=== PATIENT | female | born 1955 | race Caucasian/White ===

== ENCOUNTER → 2019-08-24 10:41 | Outpatient (BNVA) | payer MEDICARE, SELFPAY | PROVIDERS: Family Provider Nurse Practitioner Family; PCP Family Medicine; Visit Provider Family Medicine | DX: J44.9 Chronic obstructive pulmonary disease, unspecified (principal); Z13.6 Encounter for screening for cardiovascular disorders; F32.9 Major depressive disorder, single episode, unspecified | CPT/HCPCS: 80053; 80061; 85025 ==

== ENCOUNTER → 2020-11-17 08:34 | Outpatient (BNVA) | payer MEDICARE, BC, SELFPAY | PROVIDERS: Family Provider Nurse Practitioner Family; PCP Family Medicine; Visit Provider Family Medicine | DX: Z13.6 Encounter for screening for cardiovascular disorders (principal); Z12.31 Encounter for screening mammogram for malignant neoplasm of breast; J43.1 Panlobular emphysema; F32.1 Major depressive disorder, single episode, moderate; F17.219 Nicotine dependence, cigarettes, with unspecified nicotine-induced disorders | CPT/HCPCS: 80053; 80061; 85025 ==

== ENCOUNTER 2020-12-06 17:06 | Emergency (ER) | payer MEDICARE, BC, SELFPAY ==
[2020-12-06 17:14] VITALS: BP 128/69; PULSE 111; RESP 18; TEMP 36.8; O2SAT 94; BMI 23.6
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
[2020-12-06 19:32] VITALS: RESP 20
[2020-12-06] MEDS: oxyCODONE-APAP 10-325 mg Tablet 2 TAB PO (19:32)
== END 2020-12-06 21:46 | disposition home or self-care (01) ==
PROVIDERS: Emergency Provider Emergency Medicine; PCP Family Medicine
DX: S06.0X0A Concussion without loss of consciousness, initial encounter (principal); S00.03XA Contusion of scalp, initial encounter; S30.0XXA Contusion of lower back and pelvis, initial encounter; V86.39XA Unspecified occupant of other special all-terrain or other off-road motor vehicle injured in traffic accident, initial encounter
CPT/HCPCS: 70450; 72125; 72192; 99283

== ENCOUNTER 2021-04-16 12:40 | Outpatient (CLI) | payer MEDICARE, BC, SELFPAY ==
--- NOTE | 2021-04-16 12:46 | MM_ITS ---
WS: [id number] BILATERAL 3D TOMOSYNTHESIS DIGITAL DIAGNOSTIC MAMMOGRAPHY WITH CAD CLINICAL INFORMATION: HX OF BREAST CA HISTORY: COMPARISON: None. TECHNIQUE: Bilateral CC, MLO, and ML views. FINDINGS: The breasts are composed of heterogeneous fibroglandular density, which can limit the detection of sm all underlying mass lesions. Prior RIGHT breast lumpectomy with parenchymal fibrosis unchanged in olivia earance compared to previous.. Incidental punctate calcifications. No suspicious focal mass, asymmetry, calcifications, or architectural distortion. No evidence of elmer gnancy. MM/[place] [id number] IMPRESSION: BI-RADS: 2-Benign FOLLOW UP: 1 Year Follow-up Recommend return to annual diagnostic mammography.
== END 2021-04-16 12:41 | disposition home or self-care (01) ==
LOC: RADSHAW 12:41
PROVIDERS: PCP Family Medicine; Visit Provider Family Medicine
DX: Z85.3 Personal history of malignant neoplasm of breast (principal)
CPT/HCPCS: 77062

== ENCOUNTER → 2021-11-12 08:40 | Outpatient (BNVA) | payer MEDICARE, BC, SELFPAY | PROVIDERS: PCP Family Medicine; Visit Provider Family Medicine | DX: Z13.6 Encounter for screening for cardiovascular disorders (principal); J30.2 Other seasonal allergic rhinitis; Z23 Encounter for immunization; R32 Unspecified urinary incontinence | CPT/HCPCS: 80053; 80061; 81000; 85025; 87086 ==

== ENCOUNTER 2021-12-13 18:26 | Inpatient (IN) | payer MEDICARE, BC, SELFPAY ==
[2021-12-13] VITALS (9 sets, daily range): BP systolic 119–172; BP diastolic 67–104; PULSE 113–126; RESP 18–26; TEMP 36.4–36.7; O2SAT 84–94; BMI 22.4
--- NOTE | 2021-12-13 19:18 | XRR_ITS ---
PROCEDURE INFORMATION: Exam: XR Chest Exam date and time: 12/13/2021 8:28 PM Age: 66 years old Clinical indication: Shortness of breath; Prior surgery; Surgery date: 6+ months; Surgery type: Lumpectomy for breast CA; Additional info: SOB TECHNIQUE: Imaging protocol: Radiologic exam of the chest. Views: 1 view. COMPARISON: CT chest wo con [id number] 08/01/2017 9:13 AM FINDINGS: Lungs: Severe emphysema. Coarse interstitial opacities in both lung bases. Patchy airspace opacity in the lingula. Mild scarring in the right lung apex. Pleural spaces: Unremarkable. No pleural effusion. No pneumothorax. Heart/Mediastinum: Unremarkable. No cardiomegaly. Bones/joints: Mild rightward thoracolumbar curvature. No visible thoracic fracture. Mild L2 compression fracture. XR/XR chest 1V portable [id number] IMPRESSION: 1. Bibasilar pulmonary edema versus pneumonia. 2. Age indeterminate mild L2 compression fracture.
--- NOTE | 2021-12-13 19:20 | ED_ITS ---
HPI - SOB/Dyspnea General: Chief Complaint: Shortness of Breath/Dyspnea Stated Complaint: sob, cough Time Seen by Provider: 12/13/21 19:06 Source: patient History of Present Illness: HPI Narrative: 66-year-old lady with history of COPD. She is on 3 L of oxygen, mainly at night at baseline. She presents with 3 to 5 days of increasing shortness of breath, cough with sputum production, and chills. She does not know if she has had a fever. She believes she has a cold is making her COPD worse. She denies chest pain MD elicited complaint: shortness of breath Pertinent past history: COPD Onset (ago): day(s) Context: recent illness Timing: constant and progressively worsening Severity: moderate Exacerbating factors: lying flat, exertion and coughing Relieving factors: oxygen and bronchodilators Known history of: COPD Associated symptoms: Reports chest congestion, cough, diaphoresis, fever(s), nausea and orthopnea; Deny abdominal pain, chest pain, dizziness, palpitations, paresthesias or vomiting Treatment prior to arrival: oxygen and bronchodilator Review of Systems Const: Reports: fever(s) and diaphoresis Eyes: Denies: change in vision ENMT: Denies: throat pain Card: Reports: orthopnea; Denies: chest pain or palpitations Resp: Reports: chest congestion GI: Reports: nausea; Denies: abdominal pain or vomiting Neuro: Denies: dizziness PFSH ED PFSH: Medical History COPD (chronic obstructive pulmonary disease) History of breast cancer in female Diagnosed in 2000. Surgical History H/O lumpectomy right breast H/O tubal ligation History of appendectomy Family History Other CAD (coronary artery disease) Cancer Social History Smoking and tobacco status: current every day smoker cigarettes Packs smoked per day: 0.25 Alcohol intake: never Physical Exam Const: GENERAL APPEARANCE: cooperative, in distress, ill appearing and frail appearing HENMT: COMMON NORMALS: normocephalic, atraumatic and Normal external nose present HEAD & SCALP: normocephalic and atraumatic FACE & SINUS: normal facial exam and face symmetric NOSE: Normal external nose present Eye: COMMON NORMALS: Equal, round and reactive pupils present and EOMs intact bilaterally PUPIL: Yes Equal, round and reactive pupils present Neck/C-Spine: GENERAL: Yes trachea midline Chest: CHEST: Yes Symmetrical chest wall rise Resp: EFFORT & INSPECTION: Yes tachypneic, Yes respiratory distress, Yes pursed lip breathing and Yes uses accessory muscles AUSCULTATION: wheezes (minimal) and diminished lung sounds (significant) Cardio: COMMON NORMALS: regular rate, regular rhythm and Peripheral pulses 2+ throughout RATE: regular rate RHYTHM: regular rhythm PERIPHERAL PULSES: Peripheral pulses 2+ throughout GI: COMMON NORMALS: Normal to inspection, nondistended, normoactive bowel sounds present Extremity: COMMON NORMALS: no pedal edema Neuro: MARIAA COMA SCALE: document GCS findings [place] coma scale eye opening: Spontaneous [place] coma scale verbal response: Orientated Mariaa coma scale motor response: Obey commands Mariaa coma scale total score: 15 Course Vital Signs: Vital signs: Vital Signs Temperature 97.7 F 12/14/21 03:53 Pulse Rate 115 H 12/14/21 03:53 Respiratory Rate 34 H 12/14/21 03:53 Blood Pressure 174/82 12/14/21 03:53 Pulse Oximetry 91 12/14/21 03:53 Oxygen Delivery Me thod 12/14/21 03:53 Oxygen Flow Rate 4 12/14/21 03:07 MDM - SOB/Dyspnea Medical Decision Making Patient has had Solu-Medrol, magnesium, and DuoNeb treatment with minimal improvement although she believes she is doing better. Respiratory rate is still near 40. Pulse ox is 92%. She is mildly tachycardic. She will need to be admitted. Nebulizer treatments, continued steroid, etc. Antigen panel is negative. Chest x-ray shows bibasilar atelectasis versus edema versus pneumonia. Her white blood cell count is 11.8 with a mild left shift. Her sodium is 126. HospitalistIs aware, will see the patient. Lab Data : 12/13/21 19:52 12/13/21 19:52 Labs/Radiology: Radiology Impressions Chest X-Ray 12/13/21 19:18 IMPRESSION: 1. Bibasilar pulmonary edema versus pneumonia. 2. Age indeterminate mild L2 compression fracture. Laboratory Results WBC 11.8 10^3/uL (4.0-10.0) H 12/13/21 19:52 RBC 4.26 10^6/uL (4.1-5.3) 12/13/21 19:52 Hgb 13.1 g/dL (11.5-15.3) 12/13/21 19:52 Hct 41.5 % (37.0-47.0) 12/13/21 19:52 MCV 97.4 fl (81-99) 12/13/21 19:52 MCH 30.8 pg (28.0-34.0) 12/13/21 19:52 MCHC 31.6 g/dL (30.0-36.0) 12/13/21 19:52 RDW 12.0 % (12.1-15.1) L 12/13/21 19:52 Plt Count 192 10^3/cmm (130-400) 12/13/21 19:52 MPV 11.3 fL (7.4-10.4) H 12/13/21 19:52 Neut % (Auto) 87.2 % 12/13/21 19:52 Lymph % (Auto) 2.0 % 12/13/21 19:52 [place] % (Auto) 10.0 % 12/13/21 19:52 Eos % (Auto) 0.0 % 12/13/21 19:52 Baso % (Auto) 0.4 % 12/13/21 19:52 Neut # (Auto) 10.26 10^3/uL (1.8-7.7) H 12/13/21 19:52 Lymph # (Auto) 0.2 10^3/uL (0.8-4.8) L 12/13/21 19:52 [place] # (Auto) 1.2 10^3/uL (0.2-0.9) H 12/13/21 19:52 Eos # (Auto) 0.0 10^3/uL (0.0-0.8) 12/13/21 19:52 Baso # (Auto) 0.1 10^3/uL (0.0-0.1) 12/13/21 19:52 Nucleated RBC % (auto) 0 % 12/13/21 19:52 Nucleated RBCs # 0.0 /100WBC 12/13/21 19:52 Specimen Type Arterial 12/13/21 19:45 Sample Site Radial, right 12/13/21 19:45 ABG pH 7.35 (7.35-7.45) 12/13/21 19:45 ABG pCO2 53.0 mmHg (35-45) H 12/13/21 19:45 ABG pO2 58.0 mmHg (80.0-100.0) L 12/13/21 19:45 ABG HCO3 29.1 mmol/L (22-26) H 12/13/21 19:45 ABG Base Excess 2.3 mmol/L (-2.0-2.0) H 12/13/21 19:45 Heron Test Pos 12/13/21 19:45 Hematocrit 42.2 % (37-47) 12/13/21 19:45 Hgb O2 Saturation 89.1 % (95-100) L 12/13/21 19:45 Carboxyhemoglobin 1.4 %THgb (0.4-20.1) 12/13/21 19:45 Methemoglobin 0.6 % (0.4-1.5) 12/13/21 19:45 Total Hemoglobin 13.8 g/dL (12-16) 12/13/21 19:45 O2 Delivery Device Nc 12/13/21 19:45 O2 Liters/Min 4.0 % 12/13/21 19:45 Loom Operator ID [email or web address] 12/13/21 19:45 Sodium 126 mmol/L (136-145) L 12/13/21 19:52 Potassium 4.1 mmol/L (3.5-5.1) 12/13/21 19:52 Chloride 88 mmol/L (98-107) L 12/13/21 19:52 Carbon Dioxide 27 mmol/L (22-29) 12/13/21 19:52 Anion Gap 15.1 (5-19) 12/13/21 19:52 BUN 9 mg/dL (8-23) 12/13/21 19:52 Creatinine 0.4 mg/dL (0.5-0.9) L 12/13/21 19:52 GFR Calculation 159.2 mL/min (90-130) H 12/13/21 19:52 Glucose 129 mg/dL (65-115) H 12/13/21 19:52 Calculated Osmolality 262 mOsm/kg (285-295) L 12/13/21 19:52 Lactic Acid 1.2 mmol/L (0.5-2.2) 12/13/21 19:52 Calcium 9.0 mg/dL (8.5-10.5) 12/13/21 19:52 Total Bilirubin 0.4 mg/dL (0.15-1.2) 12/13/21 19:52 AST 29 U/L (0-32) 12/13/21 19:52 ALT 30 U/L (0-33) 12/13/21 19:52 Alkaline Phosphatase 123 U/L (35-105) H 12/13/21 19:52 NT-Pro-B Natriuret Pep 185 pg/mL (0-125) H 12/13/21 19:52 Total Protein 7.1 g/dL (6.6-8.7) 12/13/21 19:52 Albumin 3.7 g/dL (3.5-5.2) 12/13/21 19:52 Globulin 3.4 g/dL (1.3-4.6) 12/13/21 19:52 Influenza Type A Ag negative (Negative) 12/13/21 19:52 Influenza Type B Ag negative (Negative) 12/13/21 19:52 SARS-CoV-2 Ag (Rapid) negative (Negative) 12/13/21 19:52 Discharge Plan Discharge Patient Disposition: Admitted As Inpatient Admit Provider: Loreta Arthur Clinical Impression: Acute exacerbation of chronic obstructive airways disease, Acute respiratory failure with hypoxia and hypercapnia Condition: Stable Coding Level of Care Code ED Supreme [employer] Judge for Chg Fwd Exam Comprehensive
[2021-12-13] MEDS: magnesium sulfate premix 2 GM/50 ML PIGGYBACK IV (19:51)
[2021-12-13 19:56] LABS: ABG PH Result 7.35 (7.35-7.45); Arterial Blood Gas Hematocrit 42.2 % (37-47); Base Excess ABG 2.3 mmol/L (-2.0-2.0); Blood Gas Allen Test Pos; Blood Gas Operator Identificat WALCI; Blood Gas Sample Site Radial, right; Blood Gas Sample Type Arterial; Carboxyhemoglobin 1.4 %THgb (0.4-20.1); HCO3 ABG 29.1 mmol/L (22-26); HGB O2 Sat 89.1 % (95-100); Methemoglobin 0.6 % (0.4-1.5); Oxygen Device NC; Total Hemoglobin 13.8 g/dL (12-16)
--- NOTE | 2021-12-13 19:57 | ECG_ITS ---
[facility] Test Date: 2021-12-13 Pat Name: Teri Nixon Department: Room: Gender: Female Zipper Lining Folder: : 1955 Requested By: Austin Garza Order Number: [id number] Rodrigo MD: Ashley Olivas M.D. Measurements Intervals [place] Rate: 120 P: 93 VT: 177 QRS: 91 QRSD: 93 T: 13 QT: 304 QTc: 431 Interpretive Statements SINUS TACHYCARDIA BORDERLINE RIGHT AXIS DEVIATION [QRS AXIS > 90] No previous ECG available for comparison Electronically Signed On 12-15-2021 12:05:59 SENIOR SALES ASSOCIATE by Ashley Olivas M.D. [id number]
[2021-12-13] MEDS: ipratropium-albuterol 3 mL Neb INHALATION (19:59)
[2021-12-13 20:02] LABS: Basophils # 0.1 10^3/uL (0.0-0.1); Basophils % 0.4 %; Hematocrit 41.5 % (37.0-47.0); Hemoglobin 13.1 g/dL (11.5-15.3); Lymphocytes # 0.2 10^3/uL (0.8-4.8); Mean Corpuscular HGB Conc 31.6 g/dL (30.0-36.0); Mean Corpuscular Hemoglobin 30.8 pg (28.0-34.0); Mean Corpuscular Volume 97.4 fl (81-99); Mean Platelet Volume 11.3 fL (7.4-10.4); Monocytes # 1.2 10^3/uL (0.2-0.9); Neutrophils # 10.26 10^3/uL (1.8-7.7); Neutrophils % 87.2 %; Nucleated Red Blood Cells % 0 %; Platelet Count 192 10^3/cmm (130-400); Red Blood Count 4.26 10^6/uL (4.1-5.3); White Blood Count 11.8 10^3/uL (4.0-10.0)
[2021-12-13 20:17] LABS: Lactic Sepsis W/Reflex 1.2 mmol/L (0.5-2.2)
[2021-12-13 20:28] LABS: Alanine Aminotransferase 30 U/L (0-33); Albumin Level 3.7 g/dL (3.5-5.2); Alkaline Phosphatase 123 U/L (35-105); Anion Gap 15.1 (5-19); Aspartate Amino Transferase 29 U/L (0-32); Blood Urea Nitrogen 9 mg/dL (8-23); Carbon Dioxide 27 mmol/L (22-29); Chloride 88 mmol/L (98-107); Globulin 3.4 g/dL (1.3-4.6); Glomerular Filtration Rate 159.2 mL/min (90-130); Glucose 129 mg/dL (65-115); NT Pro B Type Natriuretic Pept 185 pg/mL (0-125); Osmolality Calculated 262 mOsm/kg (285-295); Potassium 4.1 mmol/L (3.5-5.1); Sodium 126 mmol/L (136-145); Total Bilirubin 0.4 mg/dL (0.15-1.2); Total Protein 7.1 g/dL (6.6-8.7)
[2021-12-13 20:34] LABS: Influenza A by IFA negative (Negative); Influenza B by IFA negative (Negative)
[2021-12-13 20:41] LABS: SARS Covid-2 Antigen negative (Negative)
[2021-12-13 20:47] LABS: Creatinine Clr Calc Pharmacy 63.2285
[2021-12-13] MEDS: albuterol 2.5 mg/3 mL Neb INHALATION (21:05)
--- NOTE | 2021-12-13 21:16 | PC.NURSE ---
Report given to Henri Stover
[2021-12-14] VITALS (17 sets, daily range): BP systolic 121–174; BP diastolic 64–82; PULSE 80–115; RESP 15–34; TEMP 36.3–37; O2SAT 91–98
--- NOTE | 2021-12-14 02:00 | P.HP_ITS ---
Providers/Chief Complaint Admitting Physician: Loreta Arthur MD Primary Care Provider: Kirsten Weathers DO Chief Complaint: sob, cough History of Present Illness Teri Nixon is a 66 year old female with a past medical history of COPD, uses 3.5 L of supplemental O2 at home, mostly at night, remote history of breast cancer. She presents to the emergency room today with chief complaints of 3 to 4 days of increasing dyspnea cough and greenish sputum production. Subjectively she states she may have also had a fever however has not checked her fever. Rhinorrhea is also present. She has been using her inhalers at home however has not had any significant relief. Review of Systems General: Reports: 10 or more systems reviewed and unremarkable except in HPI and below Const: Denies: fever(s), chills or body aches Eyes: Denies: change in vision, blurry vision or photophobia ENMT: Reports: hoarseness; Denies: throat pain, enlarged tonsils, odynophagia or nasal congestion Card: Denies: chest pain, palpitations, irregular heart rhythm, edema, swelling of feet/ankles, lightheadedness, pre-syncope, dyspnea on exertion or orthopnea Resp: Denies: dyspnea, productive cough, non-productive cough, wheezing, stridor, pain on inspiration, change in phlegm color, hemoptysis or chest congestion GI: Denies: abdominal pain, nausea, vomiting, hematemesis, coffee ground emesis, dysphagia, heartburn, diarrhea, constipation, GI cramping, change in stool character, hematochezia or melena : Denies: flank pain, difficulty voiding, dysuria, urinary frequency, urinary urgency, urinary hesitancy or hematuria Musc: Denies: neck pain, back pain, extremity pain, joint swelling, joint warmth or deformity Neuro: Denies: headache(s), numbness in extremities, weakness in extremities, sensory changes, difficulty walking, frequent falls, dizziness, vertigo, behavioral changes, Slurred speech present or seizure-like activity Psych: Denies: anxiety, depression, suicidal ideation or homicidal ideation Endo: Denies: polyuria, polydipsia, tired all the time, cold intolerance or hot flashes Tawanda/Lymph: Denies: easy bruising or easy bleeding Medications/Allergies Home Medications Medication Instructions Recorded Confirmed Last Taken Type albuterol sulfate 90 mcg/actuation 2 puff inhalation QID #25.5 grams 11/12/21 12/13/21 12/13/21 08:00 Rx aerosol inhaler (ProAir HFA) ciprofloxacin HCl 500 mg tablet 500 mg PO BID #10 tabs 11/12/21 12/13/21 12/13/21 08:00 Rx citalopram 20 mg tablet 20 mg PO DAILY #90 tabs 11/12/21 12/13/21 12/13/21 08:00 Rx fluticasone fur. 100 mcg-umeclid 1 inh inhalation DAILY 30 days #60 11/12/21 12/13/21 12/13/21 08:00 Rx 62.5 mcg-vilant 25 mcg ea inhalat.powder (Trelegy Ellipta) montelukast 10 mg tablet 10 mg PO DAILY #90 tabs 11/12/21 12/13/21 12/13/21 08:00 Rx (Singulair) Allergies Allergy/AdvReac Type Severity Reaction Status Date / Time No Known Allergies Allergy Verified 11/12/21 08:01 PFSH Acute PFSH: Medical History COPD (chronic obstructive pulmonary disease) History of breast cancer in female Diagnosed in 2000. Surgical History H/O lumpectomy right breast H/O tubal ligation History of appendectomy Family History Other CAD (coronary artery disease) Cancer Social History Smoking and tobacco status: current every day smoker cigarettes Packs smoked per day: 0.25 Alcohol intake: never Vitals/I&O/Wt Last Vital Signs Temp 97.7 F 12/14/21 03:53 Pulse 95 12/14/21 05:29 Resp 24 H 12/14/21 05:05 BP 137/70 12/14/21 05:05 Pulse Ox 91 12/14/21 03:53 O2 Del Method 12/14/21 03:53 O2 Flow Rate 4 12/14/21 03:07 12/13/21 12/13/21 12/14/21 14:59 22:59 06:59 Intake Total 50 / 50 100 / 150 Balance 50 / 50 100 / 150 Weight last 48 hrs Weight 61.235 kg Physical Exam Narrative: General: No acute distress, AO x3 HEENT: PERRLA, pupils bilaterally equal and reactive, pallors not present Chest: Wheezing to auscultation bilaterally CVS: S1-S2 regular, no murmurs, no tachycardia, no gallops, no rubs Abdomen: Soft, nontender, no organomegaly, bowel sounds present Neuro: No focal deficits, no facial deformity, AO x3, power 5/5 in all limbs Data : 12/13/21 19:52 12/13/21 19:52 Micro: Microbiology 12/13/21 21:08 Blood Culture - Preliminary Blood SPECIMEN COLLECTED 12/13/21 21:04 Blood Culture - Preliminary Blood SPECIMEN COLLECTED ABG Interpretation 1: 12/13/21 19:45 ABG pH 7.35 ABG pCO2 53.0 H ABG pO2 58.0 L ABG HCO3 29.1 H ABG Base Excess 2.3 H Other data: [facility] [address] XRay Report Signed Patient: Teri Nixon Unit #: [id number] : 1955 Age/Sex: 66 / F ADM Date: 12/13/21 Loc: ER Room/Bed: Attending Dr: Ordering Provider/Ordering MD: Austin Humphries DO Date of Service: 12/13/21 Procedure(s): XR chest 1V portable 35614 Accession Number(s): [id number] Report Number: [id number] PROCEDURE INFORMATION: Exam: XR Chest Exam date and time: 12/13/2021 8:28 PM Age: 66 years old Clinical indication: Shortness of breath; Prior surgery; Surgery date: 6+ months; Surgery type: Lumpectomy for breast CA; Additional info: SOB TECHNIQUE: Imaging protocol: Radiologic exam of the chest. Views: 1 view. COMPARISON: CT chest con [id number] 08/01/2017 9:13 AM FINDINGS: Lungs: Severe emphysema. Coarse interstitial opacities in both lung bases. Patchy airspace opacity in the lingula. Mild scarring in the right lung apex. Pleural spaces: Unremarkable. No pleural effusion. No pneumothorax. Heart/Mediastinum: Unremarkable. No cardiomegaly. Bones/joints: Mild rightward thoracolumbar curvature. No visible thoracic fracture.? Mild L2 compression fracture. XR/XR chest 1V portable [id number] IMPRESSION: 1. Bibasilar pulmonary edema versus pneumonia. 2. Age indeterminate mild L2 compression fracture. ? A&P Assessment and plan (1) Acute exacerbation of chronic obstructive airways disease: (2) Acute respiratory failure with hypoxia and hypercapnia: Plan 66-year-old lady with a past medical history of COPD, oxygen dependent at baseline, presented to the emergency room with 3 to 4 days of worsening dyspnea, cough and expectoration. Chest x-ray today shows bilateral scattered infiltrates appearing to be edema versus interstitial lung disease. Significantly hyperinflated lungs. Will admit to the hospital in view of acute on chronic COPD exacerbation DuoNeb inhalation every 6 hours Budesonide inhalation every 12 hours Methylprednisone 40 mg IV every 8 hours Supplemental O2 to keep saturation 90 to 92%. Screening D-dimer if elevated will evaluate CTA PE. Attestations Medical Necessity Statement*: Anticipate greater than 2 midnight admission for management of acute on chronic COPD exacerbation. Coding Level of Care Code Acute Line Rider for Rakel Lozano Diagnoses Acute exacerbation of chronic obstructive airways disease J44.1 Acute respiratory failure with hypoxia and hypercapnia J96.01; J96.02
[2021-12-14] MEDS: enoxaparin 40 mg/0.4 mL Syringe SUBCUT (03:05)
[2021-12-14] MEDS: ipratropium-albuterol 3 mL Neb INHALATION ×4 (03:06→20:14)
[2021-12-14 05:55] LABS: D Dimer 1.03 ug/mIFEU (0-0.59)
[2021-12-14 06:02] LABS: Troponin T (5th) Once 9 ng/L (0-10)
--- NOTE | 2021-12-14 06:48 | CTR_ITS ---
PROCEDURE INFORMATION: Exam: CTA Chest With Contrast Exam date and time: 12/14/2021 1:16 PM Age: 66 years old Clinical indication: Shortness of breath; Additional info: Evaluate for pe TECHNIQUE: Imaging protocol: Computed tomographic angiography of the chest with contrast. 3D rendering (Not supervised by radiologist): MIP and/or 3D reconstructed images were created by the technologist. Radiation optimization: All CT scans at this facility use at least one of these dose optimization techniques: automated exposure control; mA and/or kV adjustment per patient size (includes targeted exams where dose is matched to clinical indication); or iterative reconstruction. Contrast material: OMNI 350; Contrast volume: 67 ml; Contrast route: INTRAVENOUS (IV); COMPARISON: CT chest wo con [id number] 08/01/2017 9:13 AM RADIATION DOSE METRICS: Total DLP (mGy-cm): 202.54 FINDINGS: Pulmonary arteries: No pulmonary embolus or aortic dissection. Aorta: Calcification of the thoracic aorta and/or great vessels consistent with atherosclerotic vessel disease. Lungs: Scarring and/or atelectasis in the inferior segment of the lingula. Stable severe COPD . Interval appearance of nodular opacities with some tree-in-bud phenomena in the mid and lower lung montoya consistent with reactivation tuberculosis versus other bilateral pneumonia. Pleural spaces: Unremarkable. No pneumothorax. No pleural effusion. Heart: Moderate calcified coronary artery disease. Lymph nodes: Stable left calcified hilar nodes and/or mediastinal nodes and/or lung nodules consistent with old granulomatous disease. Bones/joints: Unremarkable. No acute fracture. Soft tissues: Unremarkable. CT/CT angio chest PE protcl [id number] IMPRESSION: 1. No pulmonary embolus or aortic dissection. 2. Stable severe COPD . 3. Stable left calcified hilar nodes and/or mediastinal nodes and/or lung nodules consistent with old granulomatous disease. 4. Interval appearance of nodular opacities with some tree-in-bud phenomena in the mid and lower lung montoya consistent with reactivation tuberculosis versus other bilateral pneumonia.
[2021-12-14 08:32] LABS: Alanine Aminotransferase 35 U/L (0-33); Albumin Level 3.8 g/dL (3.5-5.2); Alkaline Phosphatase 125 U/L (35-105); Anion Gap 12.3 (5-19); Aspartate Amino Transferase 32 U/L (0-32); Blood Urea Nitrogen 8 mg/dL (8-23); Calcium 8.9 mg/dL (8.5-10.5); Carbon Dioxide 30 mmol/L (22-29); Chloride 92 mmol/L (98-107); Globulin 3.1 g/dL (1.3-4.6); Glomerular Filtration Rate 221.9 mL/min (90-130); Glucose 140 mg/dL (65-115); Osmolality Calculated 271 mOsm/kg (285-295); Potassium 4.3 mmol/L (3.5-5.1); Sodium 130 mmol/L (136-145); Total Bilirubin 0.2 mg/dL (0.15-1.2); Total Protein 6.9 g/dL (6.6-8.7)
[2021-12-14] MEDS: levoFLOXacin 750 mg Tablet PO (08:35)
[2021-12-14] MEDS: pantoprazole DR 40 mg Tablet PO (08:35)
[2021-12-14 08:51] LABS: Creatinine Clr Calc Pharmacy 63.2285
[2021-12-14] MEDS: budesonide 0.5 mg/2 mL Neb INHALATION ×2 (09:24→20:14)
--- NOTE | 2021-12-14 10:43 | USCV_ITS ---
Teri Nixon Age: 66 Gender: F : 1955 Exam Date: 12/14/2021 17:16 Ordering Phys: Amaury Jean MD Technologist: John Nixon Exam Location: [facility] – [place], [place] Indication: SOB BP: 130 / 70 HR: 101 Rhythm: Sinus Technical Quality: Adequate MEASUREMENTS (Male / Female) Normal Values 2D ECHO LV Diastolic Diameter PLAX 3.9 cm 4.2 - 5.9 / 3.9 - 5.3 cm LV Systolic Diameter PLAX 2.1 cm IVS Diastolic Thickness 0.6 cm 0.6 - 1.0 / 0.6 - 0.9 cm IVS Systolic Thickness 0.7 cm LVPW Diastolic Thickness 0.9 cm 0.6 - 1.0 / 0.6 - 0.9 cm LVPW Systolic Thickness 0.8 cm LVOT Diameter 2.0 cm LV Ejection Fraction 2D Teich 78.6 % LV Ejection Fraction MOD 2C 69.7 % LV Ejection Fraction 2C AL 69.4 % LA Diameter 3.1 cm LA Width 2.4 cm LA Height 3.7 cm RA Width 2.7 cm RA Height 3.2 cm Aorta at Sinotubular Diameter 2.4 cm IVC Diameter 1.5 cm M-MODE Aortic Annulus Diameter 2.9 cm LA Ao Ratio MM 1.0 MV E Point Septal Separation 0.5 cm DOPPLER AV Peak Velocity 158.0 cm/s LVOT Peak Velocity 124.0 cm/s AV Area Cont Eq vti 2.6 cm squared AV Area Cont Eq pk 2.5 cm squared MV Peak Velocity 114.0 cm/s MV Area PHT 4.6 cm squared Mitral E to A Ratio 0.8 MV E' Velocity 53.5 cm/s Mitral E to MV E' Ratio 8.2 Mitral E to LV E' Lateral Ratio 7.3 Mitral E to LV E' Septal Ratio 9.4 TR Peak Velocity 274.7 cm/s TR Peak Gradient 30.2 mmHg TR Mean Velocity 231.2 cm/s TR Mean Gradient 21.5 mmHg TR Velocity Time Integral 65.9 cm Right Atrial Pressure 3.0 mmHg Pulmonary Artery Systolic Pressu 33.2 mmHg PV Peak Velocity 103.0 cm/s RV Acceleration Time 0.1 s RV Ejection Time 0.3 s RV AcT/ET 0.5 FINDINGS Left Ventricle Normal left ventricular size and systolic function, EF 68 %. No regional wall motion abnormalities. Grade I/IV diastolic dysfunction (abnormal relaxation filling pattern), normal to mildly elevated filling pressures. Right Ventricle The right ventricle is normal in size and function. Right Atrium The right atrium is normal in size. Left Atrium The left atrium is normal in size. Mitral Valve No gross abnormalities noted Aortic Valve Thickened aortic valve. Tricuspid Valve Trace to mild tricuspid valve regurgitation. Pulmonic Valve Pulmonic valve not well visualized. Pericardium Normal pericardium without effusion. Aorta Normal ascending aorta dimension. IVC Normal inferior vena cava. CONCLUSIONS Normal left ventricular size and systolic function, EF 68 %. No regional wall motion abnormalities. Grade I/IV diastolic dysfunction (abnormal relaxation filling pattern), normal to mildly elevated filling pressures. Thickened aortic valve. Possibly normal chamber sizes. Trace to mild tricuspid valve regurgitation. Estimated pulmonary artery peak systolic pressure 33 mmHg There is no pericardial effusion. There are no intracardiac masses. No similar previous studies are available for comparison Dr Laury Pittman MD FACC (Electronically Signed) Final Date: 15 December 2021 19:53 S
[2021-12-14] MEDS: citalopram 20 mg Tablet PO (11:41)
--- NOTE | 2021-12-14 11:59 | PC.CHAP ---
Pastoral Care Encounter/Spiritual Assessment Type of Contact [] Declined order schedule clerk visit [] Patient/Family/Request visit [] Outpatient visit [] Follow-up visit [] Physician referral [] Code/Alert [x] Routine visit [] Staff referral [] Actively dying [] Patient sleeping [] Family support [] [] Out of room [] Palliative care [] [] Receiving care in room [] Pre-surgical visit [] Trauma [] Long length of stay [] ICU visit [] Other: Relational/Emotional Strength [] Patient feels connected with others/family/visitors/staff [] Distress [] Loneliness/isolation [] Abandonment Spirituality of Patient [x] Person of Lyly [x] Attends Congregational of their Lyly [x] Believes in Prayer [] Reads Bible or Restorationism materials [] There are Spiritual issues to be addressed Vessel Ordinary Seaman Interventions [x] Prayer [x] Active listening [] Non-anxious presence [] Spiritual/emotional support [] Crisis/trauma care [] Spiritual counseling [] Bereavement support [] Provided bereavement packet [] Provided Bible/devotional materials [] Provided toy/stuffed animal, coloring book to patient or family member [] Provided Communion [] Anointing/[place] [] Salvation [x] Completed spiritual assessment [] Other: Impact on Illness or Injury [] Angry [] Fearful [] Anxious [] Often cries [] Exhaustion [] Unable to work [] Unable to attend protestant [] Unable to walk/stand [] Unable to read [] Unable to drive [] Unable to eat/drink [] Unable to sleep [] Unable to be with family [] Patient intubated [] Other: Summary Time spent with patient
[2021-12-14] MEDS: iohexol 350 mg/mL 500 mL Btl (per mL) IV (13:26)
--- NOTE | 2021-12-14 16:46 | P.PN_ITS ---
Subjective Subjective: Patient was seen and examined this morning, in mild respiratory distress, due to shortness of breath, Though she is able to speak in full sentences but during those times she is significantly short of breath. Medications: Medication Review Details: Generic Name Dose Route Start Last Admin Trade Name Freq PRN Reason Stop Dose Admin Albuterol/Ipratrop ium 3 ml 12/14/21 12:00 12/14/21 14:10 Ipratropium-Albu terol 3 Ml Neb INHALATION 3 ml Q4H PRN Administration SHORTNESS OF JULIETA TH Budesonide 0.5 mg 12/14/21 08:00 12/14/21 09:24 Budesonide 0.5 M g/2 Ml Neb INHALATION 0.5 mg BID.RESPIRATORY S CH Administration Citalopram Hydrobr omide 20 mg 12/14/21 10:40 12/14/21 11:41 Citalopram 20 Mg Tablet PO 20 mg DAILY LOUIS Administration Enoxaparin Sodium 40 mg 12/14/21 02:30 12/14/21 03:05 Enoxaparin 40 Mg /0.4 Ml Syringe SUBCUT 40 mg Q24H LOUIS Administration Levofloxacin 750 mg 12/14/21 09:00 12/14/21 08:35 Levofloxacin 750 Mg Tablet PO 750 mg DAILY LOUIS Administration Protocol Methylprednisolone Sodium Succinate 60 mg 12/14/21 11:00 12/14/21 11:41 Methylprednisolo ne Sod Succ 125 Mg /2 Ml Inj IVP 60 mg Q8H LOUIS Administration Pantoprazole Sodiu m 40 mg 12/14/21 09:00 12/14/21 08:[address] 40 Mg Tablet PO 40 mg DAILY LOUIS Administration Vitals/I&O/Wt Last Vital Signs Temp 97.4 F L 12/14/21 16:00 Pulse 92 12/14/21 16:00 Resp 16 12/14/21 16:00 BP 125/64 12/14/21 16:00 Pulse Ox 96 12/14/21 16:00 O2 Del Method 12/14/21 11:47 O2 Flow Rate 3.5 12/14/21 11:47 12/14/21 12/14/21 12/14/21 06:59 14:59 22:59 Intake Total 100 / 150 480 / 480 Balance 100 / 150 480 / 480 Weight last 48 hrs Weight 61.235 kg Physical Exam Resp: OTHER: Tripod breathing position, use of accessory muscle, diminished air entry bilaterally, occasional wheezing Cardio: COMMON NORMALS: regular rate, regular rhythm, S1 normal heart sound present, S2 normal heart sound present, No gallops present (Cardio), No murmurs present (Cardio), No rub (Cardio) and Peripheral pulses 2+ throughout RATE: regular rate RHYTHM: regular rhythm HEART SOUNDS: S1 normal heart sound present and S2 normal heart sound present PERIPHERAL PULSES: Peripheral pulses 2+ throughout GI: COMMON NORMALS: Normal to inspection, nondistended, normoactive bowel sounds present, Soft to palpation, non-tender, No hepatosplenomegaly present and no masses AUSCULTATION: Yes normoactive bowel sounds PALPATION: Yes Soft to palpation and Yes No hepatosplenomegaly present RECTAL EXAM: deferred Extremity: COMMON NORMALS: no clubbing, cyanosis or edema and no pedal edema Data : 12/13/21 19:52 12/14/21 07:49 Micro: Microbiology 12/13/21 21:08 Blood Culture - Preliminary Blood SPECIMEN COLLECTED 12/13/21 21:04 Blood Culture - Preliminary Blood SPECIMEN COLLECTED A&P Assessment and plan (1) Acute exacerbation of chronic obstructive airways disease: (2) Acute respiratory failure with hypoxia and hypercapnia: Plan 66-year-old female with past medical history of COPD, active smoker,2-5 cigarettes per day, chronically on home oxygen, on trilogy daily and ProAir as needed came in with chief complaint of worsening shortness of breath going on for the last 3 to 4 days Accompanied with productive cough, denied any fever chills, extremity swelling, PND. Assessment: Acute COPD exacerbation Euvolemic hyponatremia Plan: CTA chest: No pulmonary embolism, nodular opacities with some tree-in-bud phenom marco in the mid and lower lung montoya consistent with reactivation tuberculosis versus other bilateral pneumonia. Clinical picture does not fit into PTb, hence will air-bone avoid isolation Continue DuoNebs Solu-Medrol 60 IV every 8 Budesonide inhaler Continue montelukast On levofloxacin Incentive spirometer Monitor BMP Encourage oral intake CODE STATUS: Full code DVT prophylaxis on Lovenox Attestations Medical Necessity Statement*: Patient is in hospital for management of COPD exacerbation. Coding Level of Care Code Acute Software Engineer Web Applications for Rakel Lozano Diagnoses Acute exacerbation of chronic obstructive airways disease J44.1 Acute respiratory failure with hypoxia and hypercapnia J96.01; J96.02
[2021-12-15] VITALS (15 sets, daily range): BP systolic 119–164; BP diastolic 55–77; PULSE 68–114; RESP 16–24; TEMP 36.4–36.8; O2SAT 89–100
[2021-12-15] MEDS: enoxaparin 40 mg/0.4 mL Syringe SUBCUT (02:06)
[2021-12-15 05:31] LABS: Basophils % 0.2 %; Hematocrit 40.4 % (37.0-47.0); Hemoglobin 12.9 g/dL (11.5-15.3); Lymphocytes # 0.4 10^3/uL (0.8-4.8); Lymphocytes % 3.3 %; Mean Corpuscular HGB Conc 31.9 g/dL (30.0-36.0); Mean Corpuscular Hemoglobin 30.9 pg (28.0-34.0); Mean Corpuscular Volume 96.9 fl (81-99); Mean Platelet Volume 11.9 fL (7.4-10.4); Monocytes # 0.7 10^3/uL (0.2-0.9); Monocytes % 5.3 %; Neutrophils % 90.9 %; Nucleated Red Blood Cells % 0 %; Platelet Count 241 10^3/cmm (130-400); Red Blood Count 4.17 10^6/uL (4.1-5.3); White Blood Count 13.2 10^3/uL (4.0-10.0)
[2021-12-15 05:49] LABS: Alanine Aminotransferase 32 U/L (0-33); Albumin Level 3.6 g/dL (3.5-5.2); Alkaline Phosphatase 119 U/L (35-105); Anion Gap 11.8 (5-19); Aspartate Amino Transferase 26 U/L (0-32); Blood Urea Nitrogen 14 mg/dL (8-23); Calcium 9.4 mg/dL (8.5-10.5); Carbon Dioxide 32 mmol/L (22-29); Chloride 91 mmol/L (98-107); Globulin 2.9 g/dL (1.3-4.6); Glomerular Filtration Rate 159.2 mL/min (90-130); Glucose 155 mg/dL (65-115); Osmolality Calculated 274 mOsm/kg (285-295); Potassium 4.8 mmol/L (3.5-5.1); Sodium 130 mmol/L (136-145); Total Bilirubin 0.2 mg/dL (0.15-1.2); Total Protein 6.5 g/dL (6.6-8.7)
[2021-12-15 05:51] LABS: Creatinine Clr Calc Pharmacy 63.2285
--- NOTE | 2021-12-15 07:08 | PC.NURSE ---
Report given to Lydia PARK at this time
[2021-12-15] MEDS: ipratropium-albuterol 3 mL Neb INHALATION ×4 (08:18→20:40)
[2021-12-15] MEDS: budesonide 0.5 mg/2 mL Neb INHALATION ×2 (08:18→20:40)
[2021-12-15] MEDS: pantoprazole DR 40 mg Tablet PO (09:36)
[2021-12-15] MEDS: levoFLOXacin 750 mg Tablet PO (09:36)
[2021-12-15] MEDS: citalopram 20 mg Tablet PO (09:36)
[2021-12-15] MEDS: montelukast sodium 10 mg Tablet PO (09:36)
--- NOTE | 2021-12-15 12:08 | PC.NUTR ---
Addendum entered by Nancy Grider 12/15/21 12:12: Assessment not appropriate at this time. Original Note: Trigger received for low BMI, however pt with BMI 22.5kg/m2. PO intake 75% x 1 day, meeting est needs. Wt loss not significant for time frame x 1 year. No wt loss x 1 month. Will assess at LOS or per consult.
--- NOTE | 2021-12-15 15:26 | PM.PN ---
Subjective Subjective: Patient was seen and examined this morning, shortness of breath is improving. Patient currently has denied any evening temperatures, though she reports 15 pounds weight loss, that she attributes to poor appetite No recent travel no sick contact, does report significant shortness of breath with minimal exertion. Medications: Medication Review Details: Generic Name Dose Route Start Last Admin Trade Name Hieuq PRN Reason Stop Dose Admin Albuterol/Ipratrop ium 3 ml 12/14/21 12:00 12/15/21 13:43 Ipratropium-Albu terol 3 Ml Neb INHALATION 3 ml Q4H PRN Administration SHORTNESS OF JULIETA TH Budesonide 0.5 mg 12/14/21 08:00 12/15/21 08:18 Budesonide 0.5 M g/2 Ml Neb INHALATION 0.5 mg BID.RESPIRATORY S CH Administration Citalopram Hydrobr omide 20 mg 12/14/21 10:40 12/15/21 09:36 Citalopram 20 Mg Tablet PO 20 mg DAILY LOUIS Administration Enoxaparin Sodium 40 mg 12/14/21 02:30 12/15/21 02:06 Enoxaparin 40 Mg /0.4 Ml Syringe SUBCUT 40 mg Q24H LOUIS Administration Levofloxacin 750 mg 12/14/21 09:00 12/15/21 09:36 Levofloxacin 750 Mg Tablet PO 750 mg DAILY LOUIS Administration Protocol Methylprednisolone Sodium Succinate 60 mg 12/14/21 11:00 12/15/21 11:40 Methylprednisolo ne Sod Succ 125 Mg /2 Ml Inj IVP 60 mg Q8H LOUIS Administration Montelukast Sodium 10 mg 12/15/21 09:00 12/15/21 09:36 Montelukast Sodi um 10 Mg Tablet PO 10 mg DAILY LOUIS Administration Pantoprazole Sodiu m 40 mg 12/14/21 09:00 12/15/21 09:[address] 40 Mg Tablet PO 40 mg DAILY LOUIS Administration Vitals/I&O/Wt Last Vital Signs Temp 98.1 F 12/15/21 11:29 Pulse 88 12/15/21 13:45 Resp 22 H 12/15/21 13:35 BP 136/71 12/15/21 11:29 Pulse Ox 95 12/15/21 13:35 O2 Del Method 12/15/21 13:35 O2 Flow Rate 2 12/15/21 13:35 12/15/21 12/15/21 12/15/21 06:59 14:59 22:59 Intake Total 100 / 580 360 / 360 Balance 100 / 580 360 / 360 Weight last 48 hrs Weight 61.235 kg Physical Exam Resp: OTHER: diminished air entry bilaterally Cardio: COMMON NORMALS: regular rate, regular rhythm, S1 normal heart sound present, S2 normal heart sound present, No gallops present (Cardio), No murmurs present (Cardio), No rub (Cardio) and Peripheral pulses 2+ throughout RATE: regular rate RHYTHM: regular rhythm HEART SOUNDS: S1 normal heart sound present and S2 normal heart sound present PERIPHERAL PULSES: Peripheral pulses 2+ throughout GI: COMMON NORMALS: Normal to inspection, nondistended, normoactive bowel sounds present, Soft to palpation, non-tender, No hepatosplenomegaly present and no masses AUSCULTATION: Yes normoactive bowel sounds PALPATION: Yes Soft to palpation and Yes No hepatosplenomegaly present RECTAL EXAM: deferred Extremity: COMMON NORMALS: no clubbing, cyanosis or edema and no pedal edema Data : 12/15/21 04:26 12/15/21 04:26 Micro: Microbiology 12/13/21 21:08 Blood Culture - Preliminary Blood NEGATIVE TO DATE 12/13/21 21:04 Blood Culture - Preliminary Blood NEGATIVE TO DATE A&P Assessment and plan (1) Acute exacerbation of chronic obstructive airways disease: (2) Acute respiratory failure with hypoxia and hypercapnia: Plan 66-year-old female with past medical history of COPD, active smoker,2-5 cigarettes per day, chronically on home oxygen, on trilogy daily and ProAir as needed came in with chief complaint of worsening shortness of breath going on for the last 3 to 4 days Accompanied with productive cough, denied any fever chills, extremity swelling, PND. Assessment: Acute COPD exacerbation Euvolemic hyponatremia Plan: CTA chest: No pulmonary embolism, nodular opacities with some tree-in-bud phenomena in the mid and lower lung montoya consistent with reactivation tuberculosis versus other bilateral pneumonia. Clinical picture does not fit into PTb, hence will air-bone avoid isolation. Tree in bud appearance has wide range of differential diagnosis. 2D echo: Continue DuoNebs Solu-Medrol 60 IV every 8 Budesonide inhaler Continue montelukast On levofloxacin Incentive spirometer Monitor BMP Encourage oral intake Patient has outpatient pulmonary appointment in January CODE STATUS: Full code DVT prophylaxis on Lovenox Attestations Medical Necessity Statement*: Patient is to be in hospital management of COPD exacerbation. Time Spent in Patient Care: Greater than 35 minutes (>than 50% of time spent in counselling and/or direct pt care on unit). Coding Level of Care Code Acute Cosmetics And Toiletries Salesperson for Chg Fwd Exam Expanded Problem Focused Diagnoses Acute exacerbation of chronic obstructive airways disease J44.1 Acute respiratory failure with hypoxia and hypercapnia J96.01; J96.02
--- NOTE | 2021-12-15 16:16 | PC.RESP ---
Patient states she wears 3.5-4lpm of o2 at home.
[2021-12-15] MEDS: mirtazapine 15 mg Tablet 7.5 MG PO (20:05)
[2021-12-16] VITALS: BP 146/73; PULSE 100; RESP 15; TEMP 36.7; O2SAT 97
[2021-12-16] MEDS: enoxaparin 40 mg/0.4 mL Syringe SUBCUT (02:31)
[2021-12-16 04:00] VITALS: BP 122/61; PULSE 83; RESP 12; TEMP 36.7; O2SAT 99
--- NOTE | 2021-12-16 06:57 | PC.NURSE ---
Bedside Report given to Ginny PARK at this time
[2021-12-16 07:50] VITALS: BP 120/64; PULSE 76; RESP 16; TEMP 36.8; O2SAT 90
[2021-12-16 08:04] VITALS: PULSE 105; RESP 22; O2SAT 95
[2021-12-16] MEDS: budesonide 0.5 mg/2 mL Neb INHALATION (08:05)
[2021-12-16] MEDS: ipratropium-albuterol 3 mL Neb INHALATION (08:05)
[2021-12-16 08:34] VITALS: O2SAT 81; O2SAT 93
[2021-12-16] MEDS: citalopram 20 mg Tablet PO (09:06)
[2021-12-16] MEDS: montelukast sodium 10 mg Tablet PO (09:06)
[2021-12-16] MEDS: levoFLOXacin 750 mg Tablet PO (09:06)
[2021-12-16] MEDS: pantoprazole DR 40 mg Tablet PO (09:06)
--- NOTE | 2021-12-16 10:16 | PC.SOCIAL ---
Pg 2 IMM Explained to pt Pg 2 IMM. No questions voiced. Provided pt a copy. Initialed, dated, & timed a copy & placed in chart.
--- NOTE | 2021-12-17 17:00 | PM.DCS ---
Discharge Providers Date of Admission: 12/13/21 21:09 Date of Discharge: December 17, 2021 Attending Provider at Admission: Loreta Arthur MD Attending Provider at Discharge: Amaury Jean MD Primary Care Provider: Kirsten Weathers DO Diagnoses at Discharge Discharge Diagnosis (1) Acute exacerbation of chronic obstructive airways disease: Status: Acute (2) Acute respiratory failure with hypoxia and hypercapnia: Status: Acute Reason for Visit Reason for Visit: sob, cough Hospital Course Hospital Course 66-year-old female with past medical history of COPD, active smoker,2-5 cigarettes per day, chronically on home oxygen, on trilogy daily and ProAir as needed came in with chief complaint of worsening shortness of breath going on for the last 3 to 4 days Accompanied with productive cough, denied any fever chills, extremity swelling, PND. She was admitted for the management of COPD exacerbation:CTA chest: No pulmonary embolism,?nodular opacities with some tree-in-bud phenomena in the mid and lower lung montoya consistent with reactivation tuberculosis versus other bilateral pneumonia. Clinical picture does not fit into PTb, hence will air-bone avoid isolation. Tree in bud appearance has wide range of differential diagnosis. 2D echo:?Normal left ventricular size and systolic function, EF 68 %. No regional wall motion abnormalities. Grade I/IV diastolic dysfunction (abnormal relaxation filling pattern), normal to mildly elevated filling pressures. Thickened aortic valve. Possibly normal chamber sizes. Trace to mild tricuspid valve regurgitation.? Estimated ?pulmonary artery peak systolic pressure 33 mmHg. She was kept on conservative respiratory management steroids duo nebs, on levofloxacin, to which she responded appropriately, though she still had significant shortness of breath, that is attributable to to her advanced COPD, due to chronic smoking, she was discharged home on 4 L oxygen through nasal cannula on exertion, as well as oral prednisone for 7 days, as well as azithromycin for 5 days.Patient will follow pulmonary as outpatient. Physical Exam Resp: OTHER: diminished air entry bilaterally Cardio: COMMON NORMALS: regular rate, regular rhythm, S1 normal heart sound present, S2 normal heart sound present, No gallops present (Cardio), No murmurs present (Cardio), No rub (Cardio) and Peripheral pulses 2+ throughout RATE: regular rate RHYTHM: regular rhythm HEART SOUNDS: S1 normal heart sound present and S2 normal heart sound present PERIPHERAL PULSES: Peripheral pulses 2+ throughout GI: COMMON NORMALS: Normal to inspection, nondistended, normoactive bowel sounds present, Soft to palpation, non-tender, No hepatosplenomegaly present and no masses AUSCULTATION: Yes normoactive bowel sounds PALPATION: Yes Soft to palpation and Yes No hepatosplenomegaly present RECTAL EXAM: deferred Extremity: COMMON NORMALS: no clubbing, cyanosis or edema and no pedal edema Discharge Data Studies Completed and Pending Completed Studies During Hospitalization Category Date Time Status CTA PE [CT angio chest PE protcl [id number]] Routine Cat Scan 12/14/21 06:48 Completed XR chest 1V portable [id number] Stat Exams 12/13/21 19:18 Completed CV. echo complete* [id number] Routine Ultrasound 12/14/21 10:43 Completed Pending at discharge Category Date Time Status Blood Culture Stat Lab 12/13/21 21:08 Results Radiology Impressions Chest X-Ray 12/13/21 19:18 IMPRESSION: 1. Bibasilar pulmonary edema versus pneumonia. 2. Age indeterminate mild L2 compression fracture. Chest CTA 12/14/21 06:48 IMPRESSION: 1. No pulmonary embolus or aortic dissection. 2. Stable severe COPD . 3. Stable left calcified hilar nodes and/or mediastinal nodes and/or lung nodules consistent with old granulomatous disease. 4. Interval appearance of nodular opacities with some tree-in-bud phenomena in the mid and lower lung montoya consistent with reactivation tuberculosis versus other bilateral pneumonia. Laboratory Results WBC 13.2 10^3/uL (4.0-10.0) H 12/15/21 04:26 RBC 4.17 10^6/uL (4.1-5.3) 12/15/21 04:26 Hgb 12.9 g/dL (11.5-15.3) 12/15/21 04:26 Hct 40.4 % (37.0-47.0) 12/15/21 04:26 MCV 96.9 fl (81-99) 12/15/21 04:26 MCH 30.9 pg (28.0-34.0) 12/15/21 04:26 MCHC 31.9 g/dL (30.0-36.0) 12/15/21 04:26 RDW 12.0 % (12.1-15.1) L 12/15/21 04:26 Plt Count 241 10^3/cmm (130-400) 12/15/21 04: MPV 11.9 fL (7.4-10.4) H 12/15/21 04:26 Neut % (Auto) 90.9 % 12/15/21 04: Lymph % (Auto) 3.3 % 12/15/21 04: [place] % (Auto) 5.3 % 12/15/21 04:26 Eos % (Auto) 0.0 % 12/15/21 04: Baso % (Auto) 0.2 % 12/15/21 04:26 Neut # (Auto) 12.00 10^3/uL (1.8-7.7) H 12/15/21 04: Lymph # (Auto) 0.4 10^3/uL (0.8-4.8) L 12/15/21 04: [place] # (Auto) 0.7 10^3/uL (0.2-0.9) 12/15/21 04: Eos # (Auto) 0.0 10^3/uL (0.0-0.8) 12/15/21 04:26 Baso # (Auto) 0.0 10^3/uL (0.0-0.1) 12/15/21 04: Nucleated RBC % (auto) 0 % 12/15/21 04: Nucleated RBCs # 0.0 /100WBC 12/15/21 04:26 D-Dimer 1.03 ug/mIFEU (0-0.59) H 12/14/21 04:22 Specimen Type Arterial 12/13/21 19:45 Sample Site Radial, right 12/13/21 19:45 ABG pH 7.35 (7.35-7.45) 12/13/21 19:45 ABG pCO2 53.0 mmHg (35-45) H 12/13/21 19:45 ABG pO2 58.0 mmHg (80.0-100.0) L 12/13/21 19:45 ABG HCO3 29.1 mmol/L (22-26) H 12/13/21 19:45 ABG Base Excess 2.3 mmol/L (-2.0-2.0) H 12/13/21 19:45 Heron Test Pos 12/13/21 19:45 Hematocrit 42.2 % (37-47) 12/13/21 19:45 Hgb O2 Saturation 89.1 % (95-100) L 12/13/21 19:45 Carboxyhemoglobin 1.4 %THgb (0.4-20.1) 12/13/21 19:45 Methemoglobin 0.6 % (0.4-1.5) 12/13/21 19:45 Total Hemoglobin 13.8 g/dL (12-16) 12/13/21 19:45 O2 Delivery Device Nc 12/13/21 19:45 O2 Liters/Min 4.0 % 12/13/21 19:45 Powerhouse Mechanic Apprentice ID Genevieve 12/13/21 19:45 Sodium 130 mmol/L (136-145) L 12/15/21 04:26 Potassium 4.8 mmol/L (3.5-5.1) 12/15/21 04:26 Chloride 91 mmol/L (98-107) L 12/15/21 04:26 Carbon Dioxide 32 mmol/L (22-29) H 12/15/21 04:26 Anion Gap 11.8 (5-19) 12/15/21 04:26 BUN 14 mg/dL (8-23) 12/15/21 04:26 Creatinine 0.4 mg/dL (0.5-0.9) L 12/15/21 04:26 GFR Calculation 159.2 mL/min (90-130) H 12/15/21 04:26 Glucose 155 mg/dL (65-115) H 12/15/21 04:26 Calculated Osmolality 274 mOsm/kg (285-295) L 12/15/21 04:26 Lactic Acid 1.2 mmol/L (0.5-2.2) 12/13/21 19:52 Calcium 9.4 mg/dL (8.5-10.5) 12/15/21 04:26 Total Bilirubin 0.2 mg/dL (0.15-1.2) 12/15/21 04:26 AST 26 U/L (0-32) 12/15/21 04:26 ALT 32 U/L (0-33) 12/15/21 04:26 Alkaline Phosphatase 119 U/L (35-105) H 12/15/21 04:26 Troponin T Gen 5 ng/L 9 ng/L (0-10) 11/07/22 04:22 NT-Pro-B Natriuret Pep 185 pg/mL (0-125) H 12/13/21 19:52 Total Protein 6.5 g/dL (6.6-8.7) L 12/15/21 04:26 Albumin 3.6 g/dL (3.5-5.2) 12/15/21 04:26 Globulin 2.9 g/dL (1.3-4.6) 12/15/21 04:26 Influenza Type A Ag negative (Negative) 12/13/21 19:52 Influenza Type B Ag negative (Negative) 12/13/21 19:52 SARS-CoV-2 Ag (Rapid) negative (Negative) 12/13/21 19:52 Vitals Last Vital Signs Temp 98.2 F 12/16/21 07:50 Pulse 105 H 12/16/21 08:04 Resp 22 H 12/16/21 08:04 BP 120/64 12/16/21 07:50 Pulse Ox 81 L 12/16/21 08:34 O2 Del Method 12/16/21 08:04 O2 Flow Rate 4 12/16/21 08:34 Discharge Plan Discharge Patient Disposition: Home Condition: Stable Prescriptions: New prednisone 20 mg tablet 40 mg PO BID 7 Days Qty: 28 0RF azithromycin 500 mg tablet 500 mg PO DAILY 5 Days Qty: 5 0RF Continued montelukast [Singulair] 10 mg tablet 10 mg PO DAILY Qty: 90 3RF Trelegy Ellipta 100-62.5-25 mcg blister with device 1 inh INHALATION DAILY 30 Days Qty: 60 5RF albuterol sulfate [ProAir HFA] 90 mcg/actuation HFA aerosol inhaler 2 puff INHALATION QID Qty: 25.5 5RF citalopram 20 mg tablet 20 mg PO DAILY Qty: 90 1RF Discontinued ciprofloxacin HCl 500 mg tablet 500 mg PO BID Qty: 10 0RF Discharge Orders: Discharge Order (Routine); Ordered 12/16/21 Ordered By: Amaury Jean Other Ambulatory Orders: DME: Oxygen (Order) Location: None Selected Ordered By: Amaury Jean Referrals: DatarGuilherme MD [Physician] - 01/29/22 9:00 am Kirsten Weathers DO [Primary Care Provider] - 12/21/21 2:30 pm Patient Instructions: Prednisone (By mouth), Azithromycin (By mouth), COPD (Chronic Obstructive Pulmonary Disease) (GEN), Opioid Safety Discharge Attestations Time Spent in Discharge Care*: less than 30 min Quality Metrics Clinical Quality Measures [ No reported AMI, CVA or VTE this stay] Coding Level of Care Code Acute Chg FW DC note Diagnoses Acute exacerbation of chronic obstructive airways disease J44.1 Acute respiratory failure with hypoxia and hypercapnia J96.01; J96.02
== END 2021-12-16 12:18 | disposition home or self-care (01) | DRG 191 ==
LOC: ER 21:02 → MEDSURG 21:09
PROVIDERS: Admitting Provider Student in an Organized Health Care Education/Training Program; Emergency Provider Emergency Medicine; PCP Family Medicine; Visit Provider Internal Medicine
DX: J44.1 Chronic obstructive pulmonary disease with (acute) exacerbation (principal); E87.1 Hypo-osmolality and hyponatremia; Z99.81 Dependence on supplemental oxygen; Z85.3 Personal history of malignant neoplasm of breast; F17.210 Nicotine dependence, cigarettes, uncomplicated; Z79.51 Long term (current) use of inhaled steroids
CPT/HCPCS: 36415; 36600; 71045; 71275; 80053; 82805; 83605; 83880; 84484; 85025; 85378; 87040; 87426; 87804; 93005; 93306; 94640; 94760; 96372; J1650; J2920; J2930; J3475; J7613; J7626; Q9967

== ENCOUNTER → 2022-04-05 08:43 | Outpatient (BNVA) | payer MEDICARE, BC, SELFPAY | PROVIDERS: PCP Family Medicine; Visit Provider Internal Medicine Pulmonary Disease | DX: F17.210 Nicotine dependence, cigarettes, uncomplicated (principal); J43.1 Panlobular emphysema; J30.2 Other seasonal allergic rhinitis; R06.89 Other abnormalities of breathing | CPT/HCPCS: 99204 ==

== ENCOUNTER → 2022-04-05 10:30 | Outpatient (BNVA) | payer MEDICARE, BC, SELFPAY | PROVIDERS: PCP Family Medicine; Visit Provider Internal Medicine Pulmonary Disease | DX: R06.02 Shortness of breath (principal); R06.09 Other forms of dyspnea; J43.1 Panlobular emphysema; J30.2 Other seasonal allergic rhinitis; F17.200 Nicotine dependence, unspecified, uncomplicated; R06.89 Other abnormalities of breathing | CPT/HCPCS: 36415; 82785; 86003; 99204 ==

== ENCOUNTER 2022-04-29 08:09 | Outpatient (CLI) | payer MEDICARE, BC, SELFPAY ==
[2022-04-29 08:27] VITALS: PULSE 111; RESP 22; O2SAT 96
[2022-04-29] MEDS: albuterol 2.5 mg/3 mL Neb INHALATION (08:27)
[2022-04-29 08:31] VITALS: PULSE 117
== END 2022-04-29 08:10 | disposition home or self-care (01) ==
LOC: RT 08:11
PROVIDERS: PCP Family Medicine; Visit Provider Internal Medicine Pulmonary Disease
DX: J43.1 Panlobular emphysema (principal)
CPT/HCPCS: 94060; 94618; 94726; 94729; 99204; J7613

== ENCOUNTER 2022-05-25 11:00 | Outpatient (CLI) | payer MEDICARE, BC, SELFPAY | END 2022-05-25 11:01 | disposition home or self-care (01) | LOC: SLEEP 05-26 12:14 | PROVIDERS: PCP Family Medicine; Visit Provider Internal Medicine Pulmonary Disease | DX: J44.9 Chronic obstructive pulmonary disease, unspecified (principal); R06.89 Other abnormalities of breathing | CPT/HCPCS: 94762 ==

== ENCOUNTER → 2022-05-31 08:02 | Outpatient (BNVA) | payer MEDICARE, BC, SELFPAY | PROVIDERS: PCP Family Medicine; Visit Provider Internal Medicine Pulmonary Disease | DX: J43.1 Panlobular emphysema (principal); J30.2 Other seasonal allergic rhinitis; R06.89 Other abnormalities of breathing; F17.210 Nicotine dependence, cigarettes, uncomplicated; Z99.81 Dependence on supplemental oxygen | CPT/HCPCS: 99214 ==

== ENCOUNTER → 2022-07-27 10:29 | Outpatient (BNVA) | payer MEDICARE, BC, SELFPAY | PROVIDERS: PCP Family Medicine; Visit Provider Family Medicine | DX: Z13.6 Encounter for screening for cardiovascular disorders (principal); J43.1 Panlobular emphysema; J30.2 Other seasonal allergic rhinitis; F32.9 Major depressive disorder, single episode, unspecified; J44.9 Chronic obstructive pulmonary disease, unspecified; J44.1 Chronic obstructive pulmonary disease with (acute) exacerbation | CPT/HCPCS: 80053; 80061; 85025 ==

== ENCOUNTER 2023-01-10 08:29 | Outpatient (CLI) | payer MEDICARE, BC, SELFPAY ==
--- NOTE | 2023-01-10 08:45 | CT_ITS ---
WS: [id number] LDCT LUNG CANCER SCREENING HISTORY: ct lung screening TECHNIQUE: Axial imaging performed from the apices to 1 cm below the costophrenic angles. Coronal and sagittal reformats are submitted with axial MIP series. All CT scans at [facility] use at least one of these dose optimization techniques: automated exposure control; mA and/or kV adjustment per patient size (includes targeted exams where dose is matched to clinical indication); or iterativ e reconstruction. DLP: 46.89 mGy.cm DIvol: Mean CTDIvol: 0.60 (mGy) COMPARISON: 12/14/2021 Diagnostic quality: Satisfactory Lungs: Marked pulmonary hyperexpansion. Bullous emphysema in the upper lung montoya. There are a few v katherine small micronodules in the periphery. Very subtle groundglass attenuation in the periphery RIGHT l ower lobe. Overall the airspace disease has improved since 12/14/2021. No mass. Heart: Normal size heart with no pericardial effusion.. Other findings: Small mediastinal and hilar lymph nodes. Mild atherosclerosis aorta. Small hiatal her rudy. Partially visualized LEFT adrenal adenoma. IMPRESSION: CT/CT lung screening [id number] LUNG-RADS: 2-Benign Appearance or Behavior FOLLOW UP: 12 Month: Continue annual screening with LDCT OTHER FINDINGS (S MODIFIER): None.
== END 2023-01-10 08:30 | disposition home or self-care (01) ==
LOC: RAD 08:30
PROVIDERS: PCP Family Medicine; Visit Provider Internal Medicine Pulmonary Disease
DX: Z12.2 Encounter for screening for malignant neoplasm of respiratory organs (principal); Z87.891 Personal history of nicotine dependence
CPT/HCPCS: 71271

== ENCOUNTER 2023-03-01 10:14 | Emergency (ER) | payer MEDICARE, BC, SELFPAY ==
[2023-03-01] VITALS (7 sets, daily range): BP systolic 108–137; BP diastolic 60–93; PULSE 92–119; RESP 18–24; TEMP 36.7; O2SAT 94–100; BMI 22.3
--- NOTE | 2023-03-01 10:42 | ECG_ITS ---
[facility] Test Date: 2023-03-01 Pat Name: Teri Nixon Department: Room: Gender: Female Telemarketer Supervisor: : 1955 Requested By: Gregor Singh Order Number: [id number] Rodrigo MD: Laury Pittman M.D. Measurements Intervals [place] Rate: 122 P: 86 MS: 128 QRS: 92 QRSD: 92 T: 3 QT: 291 QTc: 415 Interpretive Statements SINUS TACHYCARDIA BORDERLINE RIGHT AXIS DEVIATION [QRS AXIS > 90] NONSPECIFIC ST & T-WAVE ABNORMALITY ABNORMAL RHYTHM ECG Compared to ECG 12/13/2021 19:57:59 T-wave abnormality now present Electronically Signed On 03-01-2023 19:52:24 PSYCHIATRIST by Laury Pittman M.D. [email or web address]
[2023-03-01 11:01] LABS: Basophils # 0.1 10^3/uL (0.0-0.1); Basophils % 0.8 %; Eosinophils % 0.4 %; Hematocrit 43.4 % (36-47); Lymphocytes # 0.9 10^3/uL (0.8-4.8); Lymphocytes % 11.5 %; Mean Corpuscular HGB Conc 31.8 g/dL (30-55); Mean Corpuscular Hemoglobin 30.5 pg (27-33); Mean Corpuscular Volume 95.8 fl (85-98); Mean Platelet Volume 10.5 fL (7.4-10.4); Monocytes # 0.3 10^3/uL (0.2-0.9); Monocytes % 4.4 %; Neutrophils # 6.21 10^3/uL (1.8-7.7); Neutrophils % 82.6 %; Nucleated Red Blood Cells % 0 %; Platelet Count 254 10^3/cmm (157-399); Red Blood Count 4.53 10^6/uL (3.85-5.65); Red Cell Distribution Width 11.9 % (12.1-15.1); White Blood Count 7.51 10^3/uL (3.29-11.43)
[2023-03-01] MEDS: methylPREDNISolone sod succ 125 mg/2 mL INJ IV (11:01)
[2023-03-01] MEDS: ipratropium-albuterol 3 mL Neb INHALATION (11:05)
--- NOTE | 2023-03-01 11:06 | XR_ITS ---
WS: [id number] XR chest 1V portable [id number] REASON FOR EXAM: sob FINDINGS: There is mild tortuosity of the thoracic aorta with normal heart size. There is significant hyperexpansion of the lungs and large areas of lucency in the upper lung montoya. There are reticular interstitial lung opacities in both lower lobes most notably the right. Likely th meliza are chronic however there is no recent baseline normal examination. IMPRESSION: Severe central lobar and bullous emphysema with significant lung hyperexpansion. No definite acute abnormality.
[2023-03-01 11:12] LABS: INR 0.97 (0.8-1.2)
[2023-03-01 11:15] LABS: D Dimer 0.34 ug/mLFEU (0-0.59)
[2023-03-01 11:17] LABS: ABG PCO2 46.5 mmHg (35-45); ABG PH Result 7.43 (7.35-7.45); Arterial Blood Gas Hematocrit 42.4 % (37-47); Base Excess ABG 5.9 mmol/L (-2.0-2.0); Blood Gas Allen Test Pos; Blood Gas Operator Identificat CAK; Blood Gas Sample Site Radial, right; Blood Gas Sample Type Arterial; Carboxyhemoglobin 0.8 %THgb (0.4-20.1); HCO3 ABG 31.1 mmol/L (22-26); HGB O2 Sat 95.8 % (95-100); Methemoglobin 0.4 % (0.4-1.5); Oxygen Device ROOM AIR; PO2 ABG 81.1 mmHg (80.0-100.0); PO2 FiO2 Ratio Arterial Blood 0; Total Hemoglobin 13.8 g/dL (12-16)
--- NOTE | 2023-03-01 11:24 | ED_ITS ---
HPI - SOB/Dyspnea 2 General: Chief Complaint: Shortness of Breath/Dyspnea Stated Complaint: sob Time Seen by Provider: 03/01/23 10:29 Source: patient Mode of arrival: ambulatory Limitations: no limitations History of Present Illness: HPI Narrative: 68-year-old female who has a history of COPD she wears oxygen at baseline 3 to 4 L states over the last week she has had some increased congestion she had cough she denies any pain she denies any fever she denies any vomiting or diarrhea. States her dyspnea is worse with exertion she denies any chest pain Associated symptoms: Deny abdominal pain, chest pain, fever(s), nausea or vomiting Review of Systems 2 Const: Denies: fever(s), chills, body aches or change in appetite ENMT: Denies: throat pain or dental pain Card: Denies: chest pain Resp: Reports: dyspnea and non-productive cough GI: Denies: abdominal pain, nausea, vomiting or diarrhea Musc: Denies: neck pain or back pain Skin/Breast: Denies: rash Neuro: Denies: headache(s) PFSH ED 2 PFSH: Medical History Acute respiratory failure with hypoxia and hypercapnia Acute exacerbation of chronic obstructive airways disease COPD (chronic obstructive pulmonary disease) History of breast cancer in female Diagnosed in 2000. Surgical History H/O tubal ligation History of appendectomy H/O lumpectomy right breast Family History Other CAD (coronary artery disease) Cancer Social History Smoking and tobacco/nicotine status: current every day tobacco/nicotine user cigarettes Packs smoked per day: 0.25 Years cigarettes smoked: 54 [ Other cigarette details: 1ppd x 54 year Hx] Alcohol intake: never Substance/Drug Use: never Physical Exam 2 Const: COMMON NORMALS: patient oriented x3 HENMT: COMMON NORMALS: normocephalic and atraumatic HEAD & SCALP: n ormocephalic and atraumatic Eye: COMMON NORMALS: Equal, round and reactive pupils present and EOMs intact bilaterally PUPIL: Yes Equal, round and reactive pupils present Neck/C-Spine: COMMON NORMALS: full ROM and supple Chest: COMMONS NORMALS: normal inspection of the chest and normal palpation of entire chest wall Resp: COMMON NORMALS: normal respiratory effort, No retractions and No use of accessory muscles AUSCULTATION: wheezes Cardio: COMMON NORMALS: regular rate, regular rhythm and No murmurs present (Cardio) RATE: regular rate RHYTHM: regular rhythm GI: COMMON NORMALS: Normal to inspection, nondistended, normoactive bowel sounds present, Soft to palpation, non-tender and no masses PALPATION: Yes Soft to palpation Extremity: COMMON NORMALS: normal to inspection and full ROM Neuro: COMMON NORMALS: patient oriented x3, moves all extremities and no focal motor deficits Psych: COMMON NORMALS: mental status grossly normal, Normal thought process present and cooperative THOUGHT PROCESS: Normal thought process present Skin: COMMON NORMALS: no rashes or lesions noted and no wounds GENERAL SKIN EXAM: no rashes or lesions noted Course 2 Vital Signs: Vital signs: Vital Signs Temperature 98.0 F 03/01/23 10:24 Pulse Rate 103 H 03/01/23 13:00 Respiratory Rate 18 03/01/23 11:05 Blood Pressure 126/69 03/01/23 13:00 Pulse Oximetry 98 03/01/23 13:00 Oxygen Delivery Me thod Room Air 03/01/23 13:00 Oxygen Flow Rate 4 03/01/23 13:00 MDM - SOB/Dyspnea Medical Decision Making Patient presents for COPD exacerbation she is in no acute distress here she is at her baseline on her 4 L x-ray shows no pneumonia we will start her on 5-day course of steroids she is follow-up with her facility planner return if worsening she understands agrees to plan. Medical Records I reviewed the patient's medical records. Lab Data I reviewed the patient's lab results. 03/01/23 10:48 03/01/23 10:48 Labs/Radiology: Laboratory Results WBC 7.51 10^3/uL (3.29-11.43) 03/01/23 10:48 RBC 4.53 10^6/uL (3.85-5.65) 03/01/23 10:48 Hgb 13.80 g/dL (11.27-16.99) 03/01/23 10:48 Hct 43.4 % (36-47) 03/01/23 10:48 MCV 95.8 fl (85-98) 03/01/23 10:48 MCH 30.5 pg (27-33) 03/01/23 10:48 MCHC 31.8 g/dL (30-55) 03/01/23 10:48 RDW 11.9 % (12.1-15.1) L 03/01/23 10:48 Plt Count 254 10^3/cmm (157-399) 03/01/23 10:48 MPV 10.5 fL (7.4-10.4) H 03/01/23 10:48 Neut % (Auto) 82.6 % 03/01/23 10:48 Lymph % (Auto) 11.5 % 03/01/23 10:48 [place] % (Auto) 4.4 % 03/01/23 10:48 Eos % (Auto) 0.4 % 03/01/23 10:48 Baso % (Auto) 0.8 % 03/01/23 10:48 Neut # (Auto) 6.21 10^3/uL (1.8-7.7) 03/01/23 10:48 Lymph # (Auto) 0.9 10^3/uL (0.8-4.8) 03/01/23 10:48 [place] # (Auto) 0.3 10^3/uL (0.2-0.9) 03/01/23 10:48 Eos # (Auto) 0.0 10^3/uL (0.0-0.8) 03/01/23 10:48 Baso # (Auto) 0.1 10^3/uL (0.0-0.1) 03/01/23 10:48 Nucleated RBC % (auto) 0 % 03/01/23 10:48 Nucleated RBCs # 0.0 /100WBC 03/01/23 10:48 PT 13.10 SECONDS (12.1-14.9) 03/01/23 10:48 INR 0.97 (0.8-1.2) 03/01/23 10:48 D-Dimer 0.34 ug/mLFEU (0-0.59) 03/01/23 10:48 Specimen Type Arterial 03/01/23 11:06 Sample Site Radial, right 03/01/23 11:06 ABG pH 7.43 (7.35-7.45) 03/01/23 11:06 ABG pCO2 46.5 mmHg (35-45) H 03/01/23 11:06 ABG pO2 81.1 mmHg (80.0-100.0) 03/01/23 11:06 ABG PO2/FiO2 Ratio 0 03/01/23 11:06 ABG HCO3 31.1 mmol/L (22-26) H 03/01/23 11:06 ABG Base Excess 5.9 mmol/L (-2.0-2.0) H 03/01/23 11:06 Heron Test Pos 03/01/23 11:06 Hematocrit 42.4 % (37-47) 03/01/23 11:06 Hgb O2 Saturation 95.8 % (95-100) 03/01/23 11:06 Carboxyhemoglobin 0.8 %THgb (0.4-20.1) 03/01/23 11:06 Methemoglobin 0.4 % (0.4-1.5) 03/01/23 11:06 Total Hemoglobin 13.8 g/dL (12-16) 03/01/23 11:06 O2 Delivery Device Room air 03/01/23 11:06 FiO2 21.0 % 03/01/23 11:06 Electroneurodiagnostic Technologist ID Cak 03/01/23 11:06 Sodium 135 mmol/L (136-145) L 03/01/23 10:48 Potassium 4.8 mmol/L (3.5-5.1) 03/01/23 10:48 Chloride 95 mmol/L (98-107) L 03/01/23 10:48 Carbon Dioxide 32 mmol/L (22-29) H 03/01/23 10:48 Anion Gap 12.8 (5-19) 03/01/23 10:48 BUN 12 mg/dL (8-23) 03/01/23 10:48 Creatinine 0.5 mg/dL (0.5-0.9) 03/01/23 10:48 GFR Calculation 122.3 mL/min (90-130) 03/01/23 10:48 Glucose 116 mg/dL (65-115) H 03/01/23 10:48 Calculated Osmolality 281 mOsm/kg (285-295) L 03/01/23 10:48 Calcium 9.7 mg/dL (8.5-10.5) 03/01/23 10:48 Total Bilirubin 0.3 mg/dL (0.15-1.2) 03/01/23 10:48 AST 14 U/L (0-32) 03/01/23 10:48 ALT 10 U/L (0-33) 03/01/23 10:48 Alkaline Phosphatase 70 U/L (35-105) 03/01/23 10:48 NT-Pro-B Natriuret Pep 45 pg/mL (0-125) 03/01/23 10:48 Total Protein 6.8 g/dL (6.6-8.7) 03/01/23 10:48 Albumin 4.3 g/dL (3.5-5.2) 03/01/23 10:48 Globulin 2.5 g/dL (1.3-4.6) 03/01/23 10:48 Influenza Type A Ag negative (Negative) 03/01/23 11:38 Influenza Type B Ag negative (Negative) 03/01/23 11:38 SARS-CoV-2 Ag (Rapid) negative (Negative) 03/01/23 11:58 All radiology interpretation(s) finalized by discharge Discharge Plan Discharge Patient Disposition: Home Clinical Impression: Acute exacerbation of chronic obstructive airways disease Condition: Stable Prescriptions: New prednisone 50 mg tablet 50 mg PO DAILY Qty: 5 0RF No Action albuterol sulfate [ProAir HFA] 90 mcg/actuation HFA aerosol inhaler 2 puff INHALATION QID Qty: 25.5 5RF montelukast [Singulair] 10 mg tablet 10 mg PO DAILY Qty: 90 3RF albuterol sulfate 2.5 mg /3 mL (0.083 %) solution for nebulization 2.5 mg inhalation Q4H PRN (Reason: Shortness Of Breath Or Wheezing) Rx Instructions: use 1 vial IN NEBULIZER EVERY 4 HOURS citalopram 40 mg tablet 40 mg PO DAILY Trelegy Ellipta 100-62.5-25 mcg blister with device 1 inh inhalation DAILY Discharge Orders: Discharge ED (Routine); Ordered 03/01/23 Ordered By: Gregor Singh Referrals: Kirsten Weathers DO [Primary Care Provider] - 1-3 days Discharge Diet: Advance as tolerated Discharge Activity: Resume usual activity Patient Instructions: COPD (Chronic Obstructive Pulmonary Disease) (ED) Coding Level of Care Code ED Nail Cutter for Rakel Lozano
[2023-03-01 11:28] LABS: Alanine Aminotransferase 10 U/L (0-33); Albumin Level 4.3 g/dL (3.5-5.2); Alkaline Phosphatase 70 U/L (35-105); Anion Gap 12.8 (5-19); Aspartate Amino Transferase 14 U/L (0-32); Blood Urea Nitrogen 12 mg/dL (8-23); Calcium 9.7 mg/dL (8.5-10.5); Carbon Dioxide 32 mmol/L (22-29); Chloride 95 mmol/L (98-107); Globulin 2.5 g/dL (1.3-4.6); Glomerular Filtration Rate 122.3 mL/min (90-130); Glucose 116 mg/dL (65-115); NT Pro B Type Natriuretic Pept 45 pg/mL (0-125); Osmolality Calculated 281 mOsm/kg (285-295); Potassium 4.8 mmol/L (3.5-5.1); Sodium 135 mmol/L (136-145); Total Bilirubin 0.3 mg/dL (0.15-1.2); Total Protein 6.8 g/dL (6.6-8.7)
[2023-03-01 12:13] LABS: Influenza A by IFA negative (Negative); Influenza B by IFA negative (Negative)
[2023-03-01 12:24] LABS: SARS Covid-2 Antigen negative (Negative)
== END 2023-03-01 14:19 | disposition home or self-care (01) ==
PROVIDERS: Emergency Provider Emergency Medicine; PCP Family Medicine
DX: J44.1 Chronic obstructive pulmonary disease with (acute) exacerbation (principal); Z11.52 Encounter for screening for COVID-19; Z85.3 Personal history of malignant neoplasm of breast; F17.210 Nicotine dependence, cigarettes, uncomplicated
CPT/HCPCS: 36415; 36600; 71045; 80053; 82805; 83880; 85025; 85378; 85610; 87426; 87804; 93005; 94640; 96374; 99285; J2930

== ENCOUNTER → 2023-03-28 09:22 | Outpatient (BNVA) | payer MEDICARE, BC, SELFPAY | PROVIDERS: PCP Family Medicine; Referring Provider Family Medicine; Visit Provider Surgery | DX: K92.2 Gastrointestinal hemorrhage, unspecified | CPT/HCPCS: 99204 ==

== ENCOUNTER 2023-04-13 11:49 | Day surgery (SDC) | payer MEDICARE, BC, SELFPAY ==
[2023-04-13 12:15] VITALS: BP 145/80; PULSE 105; RESP 18; TEMP 36.6; O2SAT 97
[2023-04-13] MEDS: sodium chloride 0.9% 1,000 ML 30 ML IV (12:25)
--- NOTE | 2023-04-13 12:45 | ANES.PREANE2 ---
Pre-Anesthetic Assessment Height/Weight: Height 1.68 m Weight 58.967 kg Temp Pulse Resp BP Pulse Ox O2 Del Method O2 Flow Rate 97.9 F 105 H 18 145/80 97 Nasal Cannula 5 04/13/23 12:15 04/13/23 12:15 04/13/23 12:15 04/13/23 12:15 04/13/23 12:15 04/13/23 12:15 04/13/23 12:15 Preop Diagnosis: Blood in stool Operation Date: 04/13/23 13:15 Proposed Procedures p [id number] egd [id number] colon G0105 screen colon H risk Z12.11,K92.2(Not Applicable) - Marc Monsivais DO s Colonoscopy(Not Applicable) - Marc Monsivais DO Was Beta Marybel taken within 24 hours: N/A Was Clonidine taken within 24 hours: N/A Last intake: Intake Last Liquid Date 04/12/23 Last Liquid Time 21:00 Last Solid Date 04/11/23 Last Solid Time 19:00 Social Tobacco and No alcohol Exam alert, oriented x 3, clear to auscultation bilaterally and regular rate & rhythm Airway Submandibular: within normal limits Cervical ROM: within normal limits Mallampati: Class II Dentition: full History/ROS No significant history except as noted and No significant complaints Pulmonary Chronic Obstructive Pulmonary Disease, Exertional Dyspnea and Shortness of Breath 5LO2 continuous CV/HEM None reported None reported Hepatic None reported GI Gastroesophageal Reflux Disease Metabolic None reported Musc/skel Osteoarthritis/DJD Neuropsych Anxiety Anesthetic Plan ASA status: 4 Anesthesia: Anesthesia Evaluation and MAC Risk of > 500 ml blood loss (7ml/kg in children): No Medications/Allergies Home Medications Medication Instructions Recorded Confirmed Last Taken Type albuterol sulfate 90 mcg/actuation 2 puff inhalation QID #25.5 grams 02/08/23 04/11/23 04/12/23 Rx aerosol inhaler (ProAir HFA) montelukast 10 mg tablet 10 mg PO DAILY #90 tabs 02/08/23 04/11/23 04/12/23 Rx (Singulair) albuterol sulfate 2.5 mg/3 mL 2.5 mg inhalation Q4H PRN 03/01/23 04/11/23 04/12/23 History (0.083 %) solution for nebulization Shortness Of Breath Or Wheezing citalopram 40 mg tablet 40 mg PO DAILY 03/01/23 04/11/23 04/12/23 History fluticasone fur. 100 mcg-umeclid 1 inh inhalation DAILY 03/01/23 04/11/23 04/12/23 History 62.5 mcg-vilant 25 mcg inhalat.powder (Trelegy Ellipta) Allergies Allergy/AdvReac Type Severity Reaction Status Date / Time No Known Allergies Allergy Verified 04/11/23 12:36 Current Medications Generic Name Dose Route Start Last Admin Trade Name Freq PRN Reason Stop Dose Admin Sodium Chloride 1,000 mls @ 30 mls/hr 04/13/23 06:30 04/13/23 12:25 Sodium Chloride 0.9% IV 04/14/23 06:29 30 mls/hr .Q24H LOUIS Administration PFSH Anesthesia Medical History Acute respiratory failure with hypoxia and hypercapnia Acute exacerbation of chronic obstructive airways disease COPD (chronic obstructive pulmonary disease) History of breast cancer in female Diagnosed in 2000. Surgical History H/O tubal ligation History of appendectomy H/O lumpectomy right breast Family History Other CAD (coronary artery disease) Cancer Social History Smoking and tobacco/nicotine status: current every day tobacco/nicotine user cigarettes Packs smoked per day: 0.25 Years cigarettes smoked: 54 [ Other cigarette details: 1ppd x 54 year Hx] Alcohol intake: never Substance/Drug Use: never Data Anesthesia Cardiac Studies: Echocardiogram 12/14/21
--- NOTE | 2023-04-13 14:02 | W.PM.OPSUD ---
Surgery/Procedure H&P Update DATE OF PROCEDURE: April 13, 2023 DATE H&P PERFORMED: 03/28/23 H&P UPDATE INFORMATION: I have reviewed H&P completed within last 30 days, I have examined patient prior to procedure and No changes to prior documentation PREOP DIAGNOSIS: Blood in stool PLANNED PROCEDURE: Operation Date: 04/13/23 13:15 Proposed Procedures p [id number] egd [id number] colon G0105 screen colon H risk Z12.11,K92.2(Not Applicable) - DO vangie Cunningham Colonoscopy(Not Applicable) - Marc Monsivais DO
[2023-04-13 14:30] VITALS: BP 113/58; PULSE 81; RESP 16; TEMP 36.4; O2SAT 100
[2023-04-13 14:45] VITALS: BP 138/73; PULSE 95; RESP 18; O2SAT 100
--- NOTE | 2023-04-13 15:04 | ANE.PACU2 ---
Inpatient post-anesthesia follow up: Vital signs: Temperature 97.6 F Pulse Rate 95 Respiratory Rate 18 Blood Pressure 138/73 Pulse Oximetry 100 Oxygen Delivery Me thod Nasal Cannula Oxygen Flow Rate 4 Fraction of Inspir ed Oxygen Hydration adequate: Yes Nausea and vomiting: No Mental status: Baseline Additional Comments: no apparent anesthetic complications noted
[2023-04-19 15:55] LABS: Mismatch Repari Proteins-IHC See Report
== END 2023-04-13 15:11 | disposition home or self-care (01) ==
PROVIDERS: PCP Family Medicine; Visit Provider Surgery
PROC: 0DJ08ZZ Inspection of Upper Intestinal Tract, Via Natural or Artificial Opening Endoscopic (ICD-10-PCS; CPT 43235; principal; 2023-04-13 13:15)
PROC: 0DJD8ZZ Inspection of Lower Intestinal Tract, Via Natural or Artificial Opening Endoscopic (ICD-10-PCS; CPT 45378; 2023-04-13 13:15)
DX: C20 Malignant neoplasm of rectum (principal); K92.1 Melena; K29.50 Unspecified chronic gastritis without bleeding; J44.9 Chronic obstructive pulmonary disease, unspecified; Z99.81 Dependence on supplemental oxygen; K21.9 Gastro-esophageal reflux disease without esophagitis; Z85.3 Personal history of malignant neoplasm of breast; F17.210 Nicotine dependence, cigarettes, uncomplicated
CPT/HCPCS: 43239; 45380; 88305; 88341; 88342; J2704; J7030

== ENCOUNTER → 2023-04-21 14:09 | Outpatient (BNVA) | payer MEDICARE, BC, SELFPAY | PROVIDERS: PCP Family Medicine; Visit Provider Surgery | DX: Z09 Encounter for follow-up examination after completed treatment for conditions other than malignant neoplasm (principal); C20 Malignant neoplasm of rectum; K92.2 Gastrointestinal hemorrhage, unspecified | CPT/HCPCS: 99214 ==

== ENCOUNTER 2023-04-26 10:03 | Oncology outpatient (recurring) (ONCR) | payer MEDICARE, BC, SELFPAY ==
[2023-04-26 10:59] LABS: Basophils # 0.1 10^3/uL (0.0-0.1); Basophils % 0.9 %; Eosinophils # 0.1 10^3/uL (0.0-0.8); Eosinophils % 0.9 %; Hematocrit 41.6 % (36-47); Lymphocytes # 1.3 10^3/uL (0.8-4.8); Lymphocytes % 19.2 %; Mean Corpuscular HGB Conc 32.7 g/dL (30-55); Mean Corpuscular Hemoglobin 31.4 pg (27-33); Mean Corpuscular Volume 96.1 fl (85-98); Monocytes # 0.4 10^3/uL (0.2-0.9); Monocytes % 6.6 %; Neutrophils # 4.79 10^3/uL (1.8-7.7); Neutrophils % 72.2 %; Nucleated Red Blood Cells % 0 %; Platelet Count 275 10^3/cmm (157-399); Red Blood Count 4.33 10^6/uL (3.85-5.65); Red Cell Distribution Width 12.3 % (12.1-15.1); White Blood Count 6.63 10^3/uL (3.29-11.43)
[2023-04-26 11:21] LABS: Alanine Aminotransferase 11 U/L (0-33); Albumin Level 4.5 g/dL (3.5-5.2); Alkaline Phosphatase 78 U/L (35-105); Anion Gap 13.3 (5-19); Aspartate Amino Transferase 14 U/L (0-32); Blood Urea Nitrogen 9 mg/dL (8-23); Calcium 9.5 mg/dL (8.5-10.5); Carbon Dioxide 30 mmol/L (22-29); Chloride 97 mmol/L (98-107); Creatinine Clr Calc Pharmacy 61.3026; Globulin 2.4 g/dL (1.3-4.6); Glomerular Filtration Rate 158.3 mL/min (90-130); Glucose 120 mg/dL (65-115); Osmolality Calculated 282 mOsm/kg (285-295); Potassium 4.3 mmol/L (3.5-5.1); Sodium 136 mmol/L (136-145); Total Bilirubin 0.2 mg/dL (0.15-1.2); Total Protein 6.9 g/dL (6.6-8.7)
[2023-04-26 11:44] LABS: Carcinoembryonic Antigen 8.4 ng/mL (0.0-4.7)
== END 2023-05-08 23:59 | disposition home or self-care (01) ==
PROVIDERS: Internal Medicine Medical Oncology; PCP Family Medicine; Visit Provider Surgery
DX: C20 Malignant neoplasm of rectum (principal); F17.210 Nicotine dependence, cigarettes, uncomplicated
CPT/HCPCS: 36415; 80053; 82378; 85025; 99205

== ENCOUNTER 2023-05-27 16:09 | Outpatient (CLI) | payer MEDICARE, BC, SELFPAY ==
--- NOTE | 2023-05-27 16:14 | USCV_ITS ---
Teri Nixon Age: 68 Gender: F : 1955 Exam Date: 05/27/2023 16:40 Ordering Phys: Hector Holt MD Technologist: Maxx Clay Exam Location: [facility] – [place] Indication: pre op BP: 108 / 61 HR: 83 Rhythm: Sinus Technical Quality: Adequate MEASUREMENTS (Male / Female) Normal Values 2D ECHO LVOT Diameter 2.1 cm LV Ejection Fraction MOD 2C 66.2 % LV Ejection Fraction 2C AL 65.1 % LA Diameter 2.7 cm RA Systolic Volume 4C AL 18.2 ml RA Systolic Volume 4C MOD 17.2 ml LA Sys Volume AL 47.4 cm cubed LA Sys Volume Index AL 28.6 cm cubed/m squared Aorta at Sinotubular Diameter 2.9 cm M-MODE LA Ao Ratio MM 1.3 AV Cusp Separation MM 2.0 cm DOPPLER AV Peak Velocity 147.0 cm/s LVOT Peak Velocity 110.0 cm/s AV Area Cont Eq vti 2.8 cm squared AV Area Cont Eq pk 2.6 cm squared MV Peak Velocity 107.0 cm/s MV Area PHT 3.8 cm squared Mitral E to A Ratio 1.0 TV Peak E Velocity 74.0 cm/s Right Atrial Pressure 3.0 mmHg PV Peak Velocity 91.5 cm/s FINDINGS Left Ventricle Normal left ventricular size, systolic function and wall thickness, with no regional wall motion abnormalities. Grade I/IV diastolic dysfunction (abnormal relaxation filling pattern), normal to mildly elevated filling pressures. Left ventricular ejection fraction is estimated at 60 %. Right Ventricle Normal right ventricular size and systolic function. Right Atrium The right atrium is normal in size. Left Atrium Mildly increased left atrial size. Mitral Valve Structurally normal mitral valve without significant stenosis or prolapse. There is no mitral regurgitation. Aortic Valve Structurally normal aortic valve without significant sclerosis or stenosis. There is no aortic regurgitation. Tricuspid Valve Structurally normal tricuspid valve without significant stenosis or regurgitation. Pulmonary artery systolic pressure is normal. Pulmonic Valve Pulmonic valve not well visualized. Pericardium Normal pericardium without effusion. Aorta Normal ascending aorta dimension. IVC The inferior vena cava appears normal. CONCLUSIONS Normal left ventricular size, systolic function and wall thickness, with no regional wall motion abnormalities. Grade I/IV diastolic dysfunction (abnormal relaxation filling pattern), normal to mildly elevated filling pressures. Left ventricular ejection fraction is estimated at 60 %. Mildly increased left atrial size. No change from the previous study dated 12/14/2021. Dr. Jonas Infante MD (Electronically Signed) Final Date: 28 May 2023 07:32 S
== END 2023-05-27 16:10 | disposition home or self-care (01) ==
LOC: RAD 16:09
PROVIDERS: PCP Family Medicine; Visit Provider Internal Medicine Cardiovascular Disease
DX: Z01.810 Encounter for preprocedural cardiovascular examination (principal); R06.09 Other forms of dyspnea; R00.0 Tachycardia, unspecified; I51.7 Cardiomegaly
CPT/HCPCS: 93306

== ENCOUNTER 2023-07-13 12:10 | Oncology outpatient (recurring) (ONCR) | payer MEDICARE, BC, SELFPAY ==
[2023-07-13 13:14] LABS: Basophils # 0.1 10^3/uL (0.0-0.1); Basophils % 0.9 %; Eosinophils # 0.1 10^3/uL (0.0-0.8); Eosinophils % 1.2 %; Hematocrit 40.3 % (36-47); Lymphocytes # 1.5 10^3/uL (0.8-4.8); Lymphocytes % 23.6 %; Mean Corpuscular HGB Conc 31.8 g/dL (30-55); Mean Corpuscular Hemoglobin 30.9 pg (27-33); Mean Corpuscular Volume 97.3 fl (85-98); Mean Platelet Volume 10.5 fL (7.4-10.4); Monocytes # 0.6 10^3/uL (0.2-0.9); Monocytes % 9.6 %; Neutrophils # 4.13 10^3/uL (1.8-7.7); Neutrophils % 64.4 %; Nucleated Red Blood Cells % 0 %; Platelet Count 273 10^3/cmm (157-399); Red Blood Count 4.14 10^6/uL (3.85-5.65); Red Cell Distribution Width 13.6 % (12.1-15.1); White Blood Count 6.43 10^3/uL (3.29-11.43)
[2023-07-13 13:44] LABS: Carcinoembryonic Antigen 4.4 ng/mL (0.0-4.7)
[2023-07-13 13:55] LABS: Alanine Aminotransferase 26 U/L (0-33); Albumin Level 4.3 g/dL (3.5-5.2); Alkaline Phosphatase 77 U/L (35-105); Anion Gap 15.2 (5-19); Aspartate Amino Transferase 16 U/L (0-32); Blood Urea Nitrogen 11 mg/dL (8-23); Calcium 9.7 mg/dL (8.5-10.5); Carbon Dioxide 30 mmol/L (22-29); Chloride 95 mmol/L (98-107); Creatinine Clr Calc Pharmacy 61.9916; Globulin 2.3 g/dL (1.3-4.6); Glomerular Filtration Rate 99.1 mL/min (90-130); Glucose 94 mg/dL (65-115); Osmolality Calculated 281 mOsm/kg (285-295); Potassium 4.2 mmol/L (3.5-5.1); Sodium 136 mmol/L (136-145); Total Bilirubin 0.2 mg/dL (0.15-1.2); Total Protein 6.6 g/dL (6.6-8.7)
== END 2023-08-07 23:59 | disposition home or self-care (01) ==
PROVIDERS: Internal Medicine Medical Oncology; PCP Family Medicine; Visit Provider Surgery
DX: C20 Malignant neoplasm of rectum (principal); Z87.891 Personal history of nicotine dependence; Z93.3 Colostomy status
CPT/HCPCS: 36415; 80053; 82378; 85025; 99214

== ENCOUNTER → 2023-09-06 12:21 | Outpatient (BNVA) | payer MEDICARE, BC, SELFPAY | PROVIDERS: PCP Family Medicine; Visit Provider Internal Medicine | DX: R07.9 Chest pain, unspecified (principal); I48.91 Unspecified atrial fibrillation; I10 Essential (primary) hypertension; Z87.891 Personal history of nicotine dependence; R94.31 Abnormal electrocardiogram [ECG] [EKG] | CPT/HCPCS: 93005; 99204 ==

== ENCOUNTER 2023-11-16 11:39 | Oncology outpatient (recurring) (ONCR) | payer MEDICARE, BC, SELFPAY ==
[2023-11-16 12:38] LABS: Albumin Level 3.9 g/dL (3.5-5.2); Alkaline Phosphatase 80 U/L (35-105); Anion Gap 11.4 (5-19); Aspartate Amino Transferase 23 U/L (0-32); Blood Urea Nitrogen 10 mg/dL (8-23); Calcium 8.8 mg/dL (8.5-10.5); Carbon Dioxide 31 mmol/L (22-29); Chloride 90 mmol/L (98-107); Globulin 2.7 g/dL (1.3-4.6); Glomerular Filtration Rate 122.3 mL/min (90-130); Glucose 110 mg/dL (65-115); Osmolality Calculated 266 mOsm/kg (285-295); Potassium 4.4 mmol/L (3.5-5.1); Sodium 128 mmol/L (136-145); Total Bilirubin 0.4 mg/dL (0.15-1.2); Total Protein 6.6 g/dL (6.6-8.7)
[2023-11-16 12:59] LABS: Basophils # 0.1 10^3/uL (0.0-0.1); Basophils % 0.7 %; Eosinophils % 0.2 %; Hematocrit 41.4 % (36-47); Lymphocytes # 1.3 10^3/uL (0.8-4.8); Lymphocytes % 15.2 %; Mean Corpuscular HGB Conc 32.1 g/dL (30-55); Mean Corpuscular Hemoglobin 30.6 pg (27-33); Mean Corpuscular Volume 95.4 fl (85-98); Mean Platelet Volume 11.2 fL (7.4-10.4); Monocytes # 0.9 10^3/uL (0.2-0.9); Monocytes % 10.2 %; Neutrophils # 6.15 10^3/uL (1.8-7.7); Neutrophils % 73.5 %; Nucleated Red Blood Cells % 0 %; Platelet Count 267 10^3/cmm (157-399); Red Blood Count 4.34 10^6/uL (3.85-5.65); Red Cell Distribution Width 12.5 % (12.1-15.1); White Blood Count 8.37 10^3/uL (3.29-11.43)
[2023-11-16 13:07] LABS: Alanine Aminotransferase 33 U/L (0-33)
[2023-11-16 13:39] LABS: Carcinoembryonic Antigen 4.6 ng/mL (0.0-4.7)
== END 2023-12-08 23:59 | disposition home or self-care (01) ==
PROVIDERS: Internal Medicine Medical Oncology; PCP Family Medicine; Visit Provider Surgery
DX: C20 Malignant neoplasm of rectum (principal); Z87.891 Personal history of nicotine dependence; Z93.3 Colostomy status
CPT/HCPCS: 36415; 80053; 82378; 85025; 99214

== ENCOUNTER 2024-01-03 13:55 | Oncology outpatient (recurring) (ONCR) | payer MEDICARE, BC, SELFPAY | END 2024-01-07 23:59 | disposition home or self-care (01) | PROVIDERS: PCP Family Medicine; Visit Provider Internal Medicine Medical Oncology | DX: C20 Malignant neoplasm of rectum (principal); Z87.891 Personal history of nicotine dependence; Z93.3 Colostomy status | CPT/HCPCS: 99214 ==

== ENCOUNTER 2024-04-02 11:16 | Oncology outpatient (recurring) (ONCR) | payer MEDICARE, BC, SELFPAY ==
--- NOTE | 2024-04-02 12:30 | CTR_ITS ---
PROCEDURE INFORMATION: Exam: CT Chest With Contrast; Diagnostic Exam date and time: 04/02/2024 1:09 PM Age: 69 years old Clinical indication: Condition or disease; Other: Colorectal cancer; Prior surgery; Surgery date: 6+ months; Surgery type: Colorectal, tubal, appy; Additional info: Surveillance TECHNIQUE: Imaging protocol: Diagnostic computed tomography of the chest with contrast. Radiation optimization: All CT scans at this facility use at least one of these dose optimization techniques: automated exposure control; mA and/or kV adjustment per patient size (includes targeted exams where dose is matched to clinical indication); or iterative reconstruction. Contrast material: OMNI 350; Contrast volume: 100 ml; Contrast route: INTRAVENOUS (IV); COMPARISON: CT chest abdpel w/*[id number] 04/27/2023 11:32 AM RADIATION DOSE METRICS: Total DLP (mGy-cm): 633.61 FINDINGS: Thyroid: There is a 5 x 7 mm hypodensity in the right lobe of the thyroid unchanged from previous. Lungs: There is some minor scarring or subsegmental atelectasis at the lung bases. Extensive changes of pulmonary emphysema are again seen not significantly changed from 04/27/2023. Pleural spaces: Unremarkable. No pneumothorax. No pleural effusion. Heart: Unremarkable. No cardiomegaly. No pericardial effusion. Lymph nodes: There is some calcified hilar and mediastinal lymph nodes in keeping with old granulomatous disease. Vasculature: There is no thoracic aortic aneurysm or dissection. Bones/joints: Unremarkable. No acute fracture. Soft tissues: Unremarkable. COMMENTS: The presence of pulmonary emphysema on CT is an independent risk factor for lung cancer. In the absence of a history or active diagnosis of lung cancer, it is recommended that this patient with emphysema be evaluated for enrollment in a low dose CT lung cancer screening program. PROCEDURE INFORMATION: Exam: CT Abdomen And Pelvis With Contrast Exam date and time: 04/02/2024 1:09 PM Age: 69 years old Clinical indication: Condition or disease; Other: Colorectal cancer; Prior surgery; Surgery date: 6+ months; Surgery type: Colorectal, tubal, appy; Additional info: Surveillance TECHNIQUE: Imaging protocol: Computed tomography of the abdomen and pelvis with contrast. Radiation optimization: All CT scans at this facility use at least one of these dose optimization techniques: automated exposure control; mA and/or kV adjustment per patient size (includes targeted exams where dose is matched to clinical indication); or iterative reconstruction. Contrast material: OMNI 350; Contrast volume: 100 ml; Contrast route: INTRAVENOUS (IV); COMPARISON: 1. CT chest abdpel w/*[id number] 04/27/2023 11:[address] lung screening [id number] 01/10/2023 8:41 AM RADIATION DOSE METRICS: Total DLP (mGy-cm): 633.61 FINDINGS: Liver: There is a small hypodensity in the left lobe of the liver measuring 7 x 9 mm adjacent to the falciform ligament most likely focal fatty change. No other focal abnormality is seen within the liver. Gallbladder and biliary ducts: Normal. No calcified stones. No ductal dilation. Pancreas: The pancreas is normal. Spleen: The spleen demonstrates punctate calcifications, consistent with remote granulomatous organism exposure. Adrenal glands: 1.5 cm sized left adrenal adenoma unchanged compared with 01/10/2023. Kidneys and ureters: The kidneys are normal. There is no evidence of hydronephrosis. There is no evidence of renal or ureteral calcifications. Stomach and bowel: There is a new colostomy in the left upper quadrant. There is Enssa's pouch within the pelvis. The patient's previously described rectal tumor has been resected. There is no evidence of intestinal obstruction. Appendix: No evidence of appendicitis. Intraperitoneal space: There is no evidence of free intraperitoneal fluid. Vasculature: The aorta demonstrates moderate atherosclerotic calcification. There is no evidence of an abdominal aortic aneurysm. Lymph nodes: There is no evidence of lymphadenopathy. Urinary bladder: Unremarkable as visualized. Reproductive: Unremarkable as visualized. Bones/joints: The lumbar spine demonstrates moderate degenerative changes at multiple levels. There is multilevel lumbar spinal stenosis.. Soft tissues: Unremarkable. CT/CT chest abdpel w/*[id number] IMPRESSION: 1. No evidence for metastatic disease within the chest. 2. Pulmonary emphysema unchanged IMPRESSION: 1. Postsurgical findings of rectal tumor resection. 2. No evidence of recurrent or metastatic disease in the abdomen or pelvis
[2024-04-02 13:10] LABS: Blood Urea Nitrogen 15 mg/dL (8-23); Glomerular Filtration Rate 82.7 mL/min (90-130)
[2024-04-02] MEDS: iohexol 350 mg/mL 500 mL Btl (per mL) PO (13:15)
[2024-04-02] MEDS: iohexol 350 mg/mL 500 mL Btl (per mL) IV (13:17)
== END 2024-04-06 23:59 | disposition home or self-care (01) ==
LOC: ONCMED 11:16 → RAD 11:17 → ONCMED 04-03 09:06
PROVIDERS: PCP Family Medicine; Visit Provider Internal Medicine Medical Oncology
DX: C20 Malignant neoplasm of rectum (principal); Z87.891 Personal history of nicotine dependence; Z93.3 Colostomy status
CPT/HCPCS: 71260; 74177; 82565; 84520

== ENCOUNTER 2024-04-23 09:47 | Oncology outpatient (recurring) (ONCR) | payer MEDICARE, BC, SELFPAY ==
[2024-04-23 10:18] LABS: Basophils # 0.1 10^3/uL (0.0-0.1); Basophils % 1.1 %; Eosinophils # 0.1 10^3/uL (0.0-0.8); Eosinophils % 1.6 %; Hematocrit 41.9 % (36-47); Lymphocytes # 1.4 10^3/uL (0.8-4.8); Lymphocytes % 20.1 %; Mean Corpuscular HGB Conc 30.8 g/dL (30-55); Mean Corpuscular Hemoglobin 30.5 pg (27-33); Mean Corpuscular Volume 99.1 fl (85-98); Monocytes # 0.7 10^3/uL (0.2-0.9); Monocytes % 9.4 %; Neutrophils # 4.75 10^3/uL (1.8-7.7); Neutrophils % 67.7 %; Nucleated Red Blood Cells % 0 %; Platelet Count 195 10^3/cmm (157-399); Red Blood Count 4.23 10^6/uL (3.85-5.65); Red Cell Distribution Width 12.5 % (12.1-15.1); White Blood Count 7.02 10^3/uL (3.29-11.43)
[2024-04-23 10:47] LABS: Carcinoembryonic Antigen 3.3 ng/mL (0.0-4.7)
[2024-04-23 11:00] LABS: Alanine Aminotransferase 12 U/L (0-33); Albumin Level 3.9 g/dL (3.5-5.2); Alkaline Phosphatase 79 U/L (35-105); Anion Gap 14.6 (5-19); Aspartate Amino Transferase 24 U/L (0-32); Blood Urea Nitrogen 10 mg/dL (8-23); Calcium 8.9 mg/dL (8.5-10.5); Carbon Dioxide 25 mmol/L (22-29); Globulin 2.4 g/dL (1.3-4.6); Glomerular Filtration Rate 98.8 mL/min (90-130); Glucose 92 mg/dL (65-115); Potassium 4.6 mmol/L (3.5-5.1); Total Bilirubin 0.3 mg/dL (0.15-1.2)
[2024-04-23 11:03] LABS: Chloride 97 mmol/L (98-107); Osmolality Calculated 273 mOsm/kg (285-295); Sodium 132 mmol/L (136-145); Total Protein 6.3 g/dL (6.6-8.7)
== END 2024-05-07 23:59 | disposition home or self-care (01) ==
PROVIDERS: PCP Family Medicine; Visit Provider Internal Medicine Medical Oncology
DX: Z08 Encounter for follow-up examination after completed treatment for malignant neoplasm (principal); Z85.048 Personal history of other malignant neoplasm of rectum, rectosigmoid junction, and anus; Z87.891 Personal history of nicotine dependence; Z93.3 Colostomy status
CPT/HCPCS: 36415; 80053; 82378; 85025; 99214

== ENCOUNTER 2024-10-29 12:30 | Oncology outpatient (recurring) (ONCR) | payer MEDICARE, BC, SELFPAY ==
--- NOTE | 2024-10-15 13:15 | CTR_ITS ---
PROCEDURE INFORMATION: Exam: CT Chest With Contrast; Diagnostic Exam date and time: 10/15/2024 1:42 PM Age: 69 years old Clinical indication: Prior oncological surgery - bilateral breast. Prior oncological surgery - rectal, RT breast lumpectomy. Condition or disease; Intestine, large; Primary cancer: RT breast, rectal; Follow-up oncological assessment; Prior surgery; Surgery date: 6+ months; Follow up adenocarcinoma of rectum, breast cancer TECHNIQUE: Imaging protocol: Diagnostic computed tomography of the chest with contrast. Radiation optimization: All CT scans at this facility use at least one of these dose optimization techniques: automated exposure control; mA and/or kV adjustment per patient size (includes targeted exams where dose is matched to clinical indication); or iterative reconstruction. Contrast material: OMNIPAQUE 350; Contrast volume: 100 ml; Contrast route: INTRAVENOUS (IV); Other contrast: Oral, OMNIPAQUE 350, 50; COMPARISON: CT chest abdpel w/*[id number] 04/02/2024 1:09 PM RADIATION DOSE METRICS: Total DLP (mGy-cm): 734.88 FINDINGS: Lungs: Severe apical predominant centrilobular emphysema. Scattered pulmonary micronodules are unchanged, for example a 3 mm left lower lobe pulmonary nodule (series 4, image 31). Subsegmental atelectasis in the right lower lobe. No consolidation. No masses. Pleural spaces: Unremarkable. No pneumothorax. No pleural effusion. Heart: Unremarkable. No cardiomegaly. No pericardial effusion. Lymph nodes: Unremarkable. No enlarged lymph nodes. Vasculature: Unremarkable. No aortic aneurysm. Bones/joints: Unremarkable. No acute fracture. Soft tissues: Unremarkable. COMMENTS: The presence of pulmonary emphysema on CT is an independent risk factor for lung cancer. In the absence of a history or active diagnosis of lung cancer, it is recommended that this patient with emphysema be evaluated for enrollment in a low dose CT lung cancer screening program. PROCEDURE INFORMATION: Exam: CT Abdomen And Pelvis With Contrast Exam date and time: 10/15/2024 1:42 PM Age: 69 years old Clinical indication: Prior oncological surgery - bilateral breast. Prior oncological surgery - rectal, RT breast lumpectomy. Condition or disease; Intestine, large; Primary cancer: RT breast, rectal; Follow-up oncological assessment; Prior surgery; Surgery date: 6+ months; Follow up adenocarcinoma of rectum, breast cancer TECHNIQUE: Imaging protocol: Computed tomography of the abdomen and pelvis with contrast. Radiation optimization: All CT scans at this facility use at least one of these dose optimization techniques: automated exposure control; mA and/or kV adjustment per patient size (includes targeted exams where dose is matched to clinical indication); or iterative reconstruction. Contrast material: OMNIPAQUE 350; Contrast volume: 100 ml; Contrast route: INTRAVENOUS (IV); Other contrast: Oral, OMNIPAQUE 350, 50; COMPARISON: CT chest abdpel w/*[id number] 04/27/2023 11:32 AM RADIATION DOSE METRICS: Total DLP (mGy-cm): 734.88 FINDINGS: Liver: Normal. No mass. Unchanged region of focal fatty deposition adjacent to the falciform ligament. Additional subcentimeter hypoattenuating focus in the right hepatic lobe, too small to characterize. Gallbladder and biliary ducts: Normal. No calcified stones. No ductal dilation. Pancreas: Normal. No ductal dilation. Spleen: No splenomegaly. Adrenal glands: Unchanged 1.6 cm left adrenal nodule. Kidneys and ureters: Normal. No hydronephrosis. Stomach and bowel: There is a left lower quadrant colostomy. No obstruction. Prior rectal resection. No evidence of mass at the site of resection. Appendix: The appendix is not visualized. No inflammatory changes in the right lower quadrant. Intraperitoneal space: Unremarkable. No free air. No significant fluid collection. Vasculature: Atherosclerosis. No abdominal aortic aneurysm. Lymph nodes: No enlarged lymph nodes by CT size criteria. Urinary bladder: Unremarkable as visualized. Reproductive: Unremarkable as visualized. Bones/joints: Unremarkable. No acute fracture. Soft tissues: Unremarkable. CT/CT chest abdpel w/*[id number] IMPRESSION: 1. No acute findings in the chest. 2. Severe apical predominant emphysema. 3. Scattered pulmonary micronodules are unchanged. No new or enlarging pulmonary nodule. IMPRESSION: No CT findings of recurrent or metastatic disease in the abdomen or pelvis.
[2024-10-15 13:38] LABS: Blood Urea Nitrogen 13 mg/dL (8-23)
[2024-10-15] MEDS: iohexol 350 mg/mL 500 mL Btl (per mL) PO (13:46)
[2024-10-15] MEDS: iohexol 350 mg/mL 500 mL Btl (per mL) IV (13:47)
[2024-10-29 12:33] LABS: Hematocrit 41.4 % (36-47); Hemoglobin 13.10 g/dL (11.27-16.99); Mean Corpuscular HGB Conc 31.6 g/dL (30-55); Mean Corpuscular Hemoglobin 30.5 pg (27-33); Mean Corpuscular Volume 96.5 fl (85-98); Nucleated Red Blood Cells % 0 %; Platelet Count 272 10^3/cmm (157-399); Red Blood Count 4.29 10^6/uL (3.85-5.65); White Blood Count 8.61 10^3/uL (3.29-11.43)
[2024-10-29 13:05] LABS: Carcinoembryonic Antigen 4.1 ng/mL (0.0-4.7)
[2024-10-29 13:24] LABS: Alanine Aminotransferase 12 U/L (0-33); Albumin Level 4.2 g/dL (3.5-5.2); Alkaline Phosphatase 85 U/L (35-105); Anion Gap 16.7 (5-19); Aspartate Amino Transferase 14 U/L (0-32); Blood Urea Nitrogen 14 mg/dL (8-23); Calcium 9.3 mg/dL (8.5-10.5); Carbon Dioxide 30 mmol/L (22-29); Chloride 97 mmol/L (98-107); Creatinine Clr Calc Pharmacy 66.3665; Globulin 2.5 g/dL (1.3-4.6); Glucose 99 mg/dL (65-115); Osmolality Calculated 289 mOsm/kg (285-295); Potassium 4.7 mmol/L (3.5-5.1); Sodium 139 mmol/L (136-145); Total Protein 6.7 g/dL (6.6-8.7)
== END 2024-11-06 23:59 | disposition home or self-care (01) ==
PROVIDERS: Internal Medicine Medical Oncology; PCP Family Medicine; Visit Provider Nurse Practitioner Family
DX: Z08 Encounter for follow-up examination after completed treatment for malignant neoplasm; Z85.038 Personal history of other malignant neoplasm of large intestine; Z87.891 Personal history of nicotine dependence; Z53.9 Procedure and treatment not carried out, unspecified reason
CPT/HCPCS: 36415; 71260; 74177; 80053; 82378; 82565; 84520; 85025; 99214